=== PATIENT | male | born 1945 | race Caucasian/White ===

== ENCOUNTER 2016-12-27 20:04 | Inpatient (IN) ==
--- NOTE | 2016-12-27 20:14 | Emergency Department Note ---
Disposition Clinical Impression: Community acquired pneumonia, Influenza, Acute on chronic kidney failure, Elevated troponin Respiratory failure Qualifiers: Chronicity: acute Respiratory failure complication: hypoxia Qualified Code(s): J96.01 - Acute respiratory failure with hypoxia Disposition: Admitted As Inpatient Condition: Fair SOB HPI - General Chief Complaint: ED Shortness of Breath/Dyspnea Stated Complaint: resp distress Time Seen by Provider: 12/27/16 20:08 Source: patient, EMS Mode of arrival: EMS Limitations: no limitations Nursing Notes Reviewed: Yes Vital Signs Reviewed: Yes - History of Present Illness 71-year-old male history of COPD not oxygen dependent, HLD, CAD, CK D who presents to the ER from the [facility] due to worsening shortness of breath and hypoxia. EMS reports the patient was transferred here due to hypoxia on the floor. Patient was descending into the 80s. Patient was placed on BiPAP prior to arrival here. He reports that he started having a nonproductive cough and shortness of breath on Friday. Patient was diagnosed with bilateral pneumonia and was admitted to the [facility]. Patient denies oxygen requirement at home. Has never required intubation. Denies any chest pain, NC, DVT or PE. No other complaints. Pt Subjective Complaint: shortness of breath Onset (ago): day(s) Context: recent illness Severity: moderate Consistency/Duration: constant Improves with: oxygen Worsens with: nothing Known history of: COPD Associated symptoms: Reports: cough, abdominal pain. Denies: chest pain, fever , sputum production, nausea/vomiting Treatment prior to arrival: oxygen, bronchodilator, NIPPV Cough present: Yes Cough Description: Involuntary Sputum production: No Sputum Amount: None - Related Data Home oxygen amount: none Allergies Allergy/AdvReac Type Severity Reaction Status Date / Time clindamycin Allergy See Verified 12/27/16 20:09 Comments Erythromycin Base Allergy See Verified 12/27/16 20:09 Comments Penicillins Allergy See Verified 12/27/16 20:09 Comments Sulfa (Sulfonamide Allergy See Verified 12/27/16 20:09 Antibiotics) Comments All systems ED: reviewed and negative except as stated. Constitutional: Denies: fever, chills Cardiovascular: Denies: chest pain Respiratory: Reports: cough, dyspnea. Denies: wheezes Gastrointestinal: Reports: abdominal pain, constipation. Denies: nausea, vomiting Musculoskeletal: Denies: back pain Integumentary: Denies: rash Past Medical History - Past Medical History Attestation: Yes The following information was validated with the patient. Source: patient Medical history: Reports: COPD, coronary artery disease Surgical history: Reports: non-contributory Physical Exam - General Limitations: no limitations General appearance: alert, in no apparent distress - Head Head exam: atraumatic, normocephalic, normal inspection - Eye Eye exam: Present: normal appearance, EOMI - ENT ENT exam: normal exam - Chest Chest inspection: Present: normal inspection, symmetric chest wall rise - Respiratory Respiratory exam: Present: other (Diminished breath sounds bilaterally with some mild accessory muscle use currently on BiPAP.). Absent: respiratory distress - Cardiovascular Cardiovascular exam: Present: normal rhythm, tachycardia, normal heart sounds - Abdominal Exam Abdominal exam: Present: soft, Non-Tender, distention. Absent: rigidity - Extremities Exam Extremities exam: Present: normal inspection, full ROM - Expanded Upper Extremity Exam Shoulder exam: Present: normal inspection, full ROM Arm exam: Present: normal inspection, full ROM Elbow exam: Present: normal inspection, full ROM Forearm/Wrist exam: Present: normal inspection, full ROM Hand exam: Present: normal inspection, full ROM - Expanded Lower Extremity Exam Hip/Pelvis exam: Present: normal inspection, full ROM Upper leg exam: Present: normal inspection, full ROM Knee exam: Present: normal inspection, full ROM Lower leg exam: Present: normal inspection, full ROM Ankle exam: Present: normal inspection, full ROM Foot/toe exam: Present: normal inspection, full ROM - Neurological Exam Neurological exam: Present: alert - Psychiatric Psychiatric exam: Present: normal affect, normal mood - Skin Skin exam: Present: warm, dry, intact, normal color Course Course Narrative: Patient seen and examined. Vital signs reviewed. He is tachycardic in the 130s here. Satting well on BiPAP. We will repeat his labs, blood cultures, lactate, EKG and chest x-ray. We will also check an ABG given his respiratory status. Vital Signs Temperature 99.0 F 12/27/16 20:10 Pulse Rate 124 12/27/16 20:10 Respiratory Rate 17 12/27/16 20:10 Blood Pressure 113/73 12/27/16 20:10 O2 Sat by Pulse Oximetry 92 L 12/27/16 20:10 Temperature 99.0 F 12/27/16 20:10 Pulse Rate 113 12/27/16 21:54 Respiratory Rate 19 12/27/16 21:54 Blood Pressure 114/71 12/27/16 21:54 O2 Sat by Pulse Oximetry 93 L 12/27/16 21:54 Oxygen Delivery Oxygen Delivery Bipap Shortness of Breath/Dyspnea - MDM Narrative Medical decision making narrative: 71-year-old male presents to the ER from the [facility] due to pneumonia, hypoxia. Patient placed on BiPAP prior to arrival. His sinus tach on the monitor. Troponin 0.04. He is chest pain-free. Chest x-ray shows multifocal pneumonia. Blood cultures drawn. Patient remains on BiPAP doing well. Not acidotic on his ABG. Patient admitted to the hospitalist service for further management. - Lab Data Lab results reviewed: Yes I reviewed the patient's lab results. Result diagrams: 12/27/16 20:51 12/27/16 20:51 Lab Results 12/27/16 12/27/16 12/27/16 Range/Units 20:08 20:51 20:51 WBC 6.0 (4.3-11.1) K/mcL RBC 4.10 L (4.19-5.50) M/mcL Hgb 12.0 L (12.9-16.9) g/dL Hct 36.7 L (37.5-50.1) % MCV 89.5 (83.0-100.0) fL MCH 29.3 (28.0-33.3) pg MCHC 32.7 (31.6-35.5) g/dL RDW 15.3 H (11.5-14.5) % Plt Count 189 (140-400) K/mcL MPV 10.6 (9.4-12.4) fL Immature Gran % 1.7 (0-4) % Seg Neutrophils % 92.2 % Lymphocytes % 3.7 % Monocytes % 2.2 % Eosinophils % 0.0 % Basophils % 0.2 % Neutrophils # 5.5 (1.6-8.9) K/mcL Lymphocytes # 0.2 L (0.6-4.6) K/mcL Monocytes # 0.1 (0.0-1.3) K/mcL Eosinophils # 0.0 (0.0-0.6) K/mcL Basophils # 0.0 (0.0-0.2) K/mcL Toxic Granulation Present A (Not Present) PT (9.4-12.1) Seconds INR ABG pH 7.36 (7.32-7.45) pH Units ABG pCO2 36 (35-45) mmHg ABG pO2 75 L (85-104) mmHg ABG HCO3 20.3 L (21-27) mEQ/L ABG Total CO2 21.4 (20-26) mEq/L ABG O2 Saturation 94 L (95-98) % ABG Base Excess -4.6 L (-2.0 to 3.0) mEq/L Blood Gas Modality BIPAP Inspired O2 60 % Sodium 137 (136-145) mEq/L Potassium 4.4 (3.5-4.5) mEq/L Chloride 104 (98-109) mEq/L Carbon Dioxide 20 (19-29) mEq/L BUN 62 H (8-26) mg/dL Creatinine 3.41 H (0.72-1.25) mg/dL Est GFR ( Amer) 22 L (> 60) Est GFR (Non-Af Amer) 18 L (> 60) BUN/Creatinine Ratio 18 (6-26) Glucose 92 (70-99) mg/dL Calculated Osmolality 301 H (280-300) Lactic Acid (0.5-2.2) mmol/L Calcium 8.8 (8.6-10.8) mg/dL Troponin I (0-0.03) ng/mL B-Natriuretic Peptide (0-100) pg/mL 12/27/16 12/27/16 12/27/16 Range/Units 20:51 20:51 20:51 WBC (4.3-11.1) K/mcL RBC (4.19-5.50) M/mcL Hgb (12.9-16.9) g/dL Hct (37.5-50.1) % MCV (83.0-100.0) fL MCH (28.0-33.3) pg MCHC (31.6-35.5) g/dL RDW (11.5-14.5) % Plt Count (140-400) K/mcL MPV (9.4-12.4) fL Immature Gran % (0-4) % Seg Neutrophils % % Lymphocytes % % Monocytes % % Eosinophils % % Basophils % % Neutrophils # (1.6-8.9) K/mcL Lymphocytes # (0.6-4.6) K/mcL Monocytes # (0.0-1.3) K/mcL Eosinophils # (0.0-0.6) K/mcL Basophils # (0.0-0.2) K/mcL Toxic Granulation (Not Present) PT (9.4-12.1) Seconds INR ABG pH (7.32-7.45) pH Units ABG pCO2 (35-45) mmHg ABG pO2 (85-104) mmHg ABG HCO3 (21-27) mEQ/L ABG Total CO2 (20-26) mEq/L ABG O2 Saturation (95-98) % ABG Base Excess (-2.0 to 3.0) mEq/L Blood Gas Modality Inspired O2 % Sodium (136-145) mEq/L Potassium (3.5-4.5) mEq/L Chloride (98-109) mEq/L Carbon Dioxide (19-29) mEq/L BUN (8-26) mg/dL Creatinine (0.72-1.25) mg/dL Est GFR ( Amer) (> 60) Est GFR (Non-Af Amer) (> 60) BUN/Creatinine Ratio (6-26) Glucose (70-99) mg/dL Calculated Osmolality (280-300) Lactic Acid 1.9 (0.5-2.2) mmol/L Calcium (8.6-10.8) mg/dL Troponin I 0.04 H* (0-0.03) ng/mL B-Natriuretic Peptide 21 (0-100) pg/mL 12/27/16 Range/Units 20:51 WBC (4.3-11.1) K/mcL RBC (4.19-5.50) M/mcL Hgb (12.9-16.9) g/dL Hct (37.5-50.1) % MCV (83.0-100.0) fL MCH (28.0-33.3) pg MCHC (31.6-35.5) g/dL RDW (11.5-14.5) % Plt Count (140-400) K/mcL MPV (9.4-12.4) fL Immature Gran % (0-4) % Seg Neutrophils % % Lymphocytes % % Monocytes % % Eosinophils % % Basophils % % Neutrophils # (1.6-8.9) K/mcL Lymphocytes # (0.6-4.6) K/mcL Monocytes # (0.0-1.3) K/mcL Eosinophils # (0.0-0.6) K/mcL Basophils # (0.0-0.2) K/mcL Toxic Granulation (Not Present) PT 14.2 H (9.4-12.1) Seconds INR 1.3 ABG pH (7.32-7.45) pH Units ABG pCO2 (35-45) mmHg ABG pO2 (85-104) mmHg ABG HCO3 (21-27) mEQ/L ABG Total CO2 (20-26) mEq/L ABG O2 Saturation (95-98) % ABG Base Excess (-2.0 to 3.0) mEq/L Blood Gas Modality Inspired O2 % Sodium (136-145) mEq/L Potassium (3.5-4.5) mEq/L Chloride (98-109) mEq/L Carbon Dioxide (19-29) mEq/L BUN (8-26) mg/dL Creatinine (0.72-1.25) mg/dL Est GFR ( Amer) (> 60) Est GFR (Non-Af Amer) (> 60) BUN/Creatinine Ratio (6-26) Glucose (70-99) mg/dL Calculated Osmolality (280-300) Lactic Acid (0.5-2.2) mmol/L Calcium (8.6-10.8) mg/dL Troponin I (0-0.03) ng/mL B-Natriuretic Peptide (0-100) pg/mL - Radiology Data Radiology results reviewed: Yes I reviewed the patient's radiology results. Chest X-Ray 12/27/16 20:08 IMPRESSION: Acute multifocal pneumonia. D/ / Ishaan Pro MD / Ishaan Pro MD Interpreting Provider: Ishaan Pro MD - EKG Data EKG attestation: Yes I reviewed and interpreted this EKG. EKG results narrative: EKG demonstrates sinus tachycardia with a rate of 133. Left axis deviation. Right bundle branch block. WA interval 126 QRS duration 109 QTC 370. T-wave inversions in precordial leads likely secondary to bundle branch block. No ST elevations or depressions. Critical Care Time Critical Care Time: Yes Total Critical Care Time: 35 Attestation: Critical care performed: Time is exclusive of separately billable procedures. Time includes: direct patient care, patient reassessment, coordination of patient care, interpretation of data (laboratory data, radiology data, and respiratory data), review of patient's medical records, medical consultation and documentation of patient care. Procedures included in critical care time: Procedures excluded from critical care time: S.Gloria.Paulo. - Tessa.Syd Situation: Demographics, MOA Background: Presenting Complaint, Relevant PMH, Meds, & Allergies Assessment: Vital Signs, Course and respsone to treatment, Exam Concerns, Patient/Family Expectation, Pertinant Lab Results, Outstanding Labs Recommendation: Barrier(s) to disposition, Recommendation based on pending studies, treatments, or consults SNick Report Given to: Dr David Hampton Repor Time: 21:53 Attestation Statement - Attestation Attestation: I, Nando Fry MD, personally performed a history and physical exam of the patient and discussed their management with the resident. I reviewed the resident's note and agree with the documented findings, medical decision making , and plan of care. Patient is a 71-year-old male who was transferred here from the local [facility] facility for management of increasing respiratory distress. Patient was admitted at the [facility] this morning for cough and shortness of breath. He had a positive flu swab for type A influenza. He was also found to have a right basilar pneumonia which was noted on CT of the abdomen and pelvis. Throughout the day his condition has deteriorated to the point that he had to be placed on BiPAP to maintain his oxygen saturation. On arrival here the patient is awake and alert and oriented and answers questions appropriately. He is on BiPAP with an oxygen saturation of 95%. Initial respiratory rate about 18. He is tachycardic with a heart rate in the 130s. He has not noticed any fever. He states he has had a nonproductive cough with generalized body aches and increased shortness of breath. On examination patient is a well-developed well-nourished elderly male in no acute distress. He is alert and oriented 3. There is no cyanosis or diaphoresis. Breath sounds are decreased bilaterally with some scattered bilateral rales. Heart is tachycardic and regular. Abdomen soft and nontender with normal bowel sounds. No pedal edema. No gross focal neurological deficits. Labs reviewed. Chest x-ray shows left perihilar and bibasilar infiltrates. Labs reviewed. Acute kidney injury with creatinine greater than 3. His creatinine at the [facility] earlier today was greater than 4. The hospitalist, Dr. Hernandez, was consulted and accepted admission of the patient.
[2016-12-27 20:17] LABS: ABG Base Excess -4.6 mEq/L (-2.0 to 3.0); ABG HCO3 20.3 mEQ/L (21-27); ABG Oxygen Saturation 94 % (95-98); ABG PCO2 36 mmHg (35-45); ABG PH 7.36 pH Units (7.32-7.45); ABG PO2 75 mmHg (85-104); ABG TCO2 21.4 mEq/L (20-26); Blood Gas FiO2 60 %
[2016-12-27 20:58] LABS: Basophils % 0.2 %; Hematocrit 36.7 % (37.5-50.1); Immature Granulocytes % 1.7 % (0-4); Lymphocytes # 0.2 K/mcL (0.6-4.6); Lymphocytes % 3.7 %; Mean Corpuscular HGB Conc 32.7 g/dL (31.6-35.5); Mean Corpuscular Hemoglobin 29.3 pg (28.0-33.3); Mean Corpuscular Volume 89.5 fL (83.0-100.0); Mean Platelet Volume 10.6 fL (9.4-12.4); Monocytes # 0.1 K/mcL (0.0-1.3); Monocytes % 2.2 %; Neutrophils # 5.5 K/mcL (1.6-8.9); Platelet Count 189 K/mcL (140-400); Red Cell Distribution Width 15.3 % (11.5-14.5); Segmented Neutrophils % 92.2 %
[2016-12-27 21:05] LABS: INR 1.3; Prothrombin Time 14.2 Seconds (9.4-12.1)
[2016-12-27 21:10] LABS: Calcium 8.8 mg/dL (8.6-10.8); Potassium 4.4 mEq/L (3.5-4.5)
[2016-12-27 21:15] LABS: Toxic Granulation Present (Not Present)
--- NOTE | 2016-12-27 23:30 | Internal Med History&Physical ---
<Telly Galvez - Last Filed: 12/28/16 02:43> Date of Encounter: 12/27/16 Time of Encounter: 23:00 Assessment and Plan (1) Respiratory failure Current visit: Yes Status: Acute Patient has acute hypoxic respiratory failure, requiring BiPAP in order to maintain oxygen saturation in the low 90s. Even with BiPAP in place he continues to use accessory muscles respiration and showing signs of fatigue. His current respiratory status is likely caused by acute bacterial pneumonia, influenza A, or both. We will replete fluids as below Continue Tamiflu started at the [place] Patient was started on moxifloxacin at the [place], we will continue with levofloxacin dosed renally We will start vancomycin due to serious nature of patient respiratory failure We will continue BiPAP as tolerated by patient, but if needed patient is willing to undergo intubation Scheduled breathing treatments with Xopenex and ipratropium nebulizer We will continue methylprednisolone 125 mg IV every 6 hours We will obtain echocardiogram to further assess heartstring and possible cardiac contribution to current respiratory status Patient moved to ICU for closer observation in case of needed intubation Continue to monitor on telemetry and pulse oximetry We will obtain ABG in the morning Sputum culture and Gram stain, strep pneumoniae and legionella antigens Obtain blood culture Qualifiers: Chronicity: acute Respiratory failure complication: hypoxia Qualified Code(s): J96.01 - Acute respiratory failure with hypoxia (2) Community acquired pneumonia Current visit: Yes Status: Acute Patient found to have multifocal pneumonia on chest examination. Contributory to patient's respiratory status. Plan as above (3) Influenza Current visit: Yes Status: Acute Patient has positive influenza a nasal swab, likely contributing to current respiratory status. Plan as above (4) Acute on chronic kidney failure Current visit: Yes Status: Acute Anuric kidney failure, with 300 mL out and BladderScan negative for residual fluid in the bladder. Reported only output since Friday, which is present in the Silva bag appears very dark colored concentrated, suggesting dehydration Patient denies urination since Friday, 4 days ago. Elevated serum creatinine seen at 3.41. When checked at the [place] prior to presentation Belinda was 4.3. Current ROSIE is likely multifactorial, given patient respiratory status and high risk for respiratory failure and decreased by mouth intake leading to dehydration and prerenal causes of ROSIE. We will continue to trend kidney function with periodic blood chemistry 500 mL bolus normal saline given Will continue fluid repletion with 250 mL an hour of normal saline for 2 L and then reassess fluid status Consider nephrology consult if continued worsening ROSIE (5) Abdominal pain Current visit: Yes Status: Acute Patient has severe abdominal pain with distention. Abdominal CT [facility], but difficult to fully assess aside from gas and stool causing some distention of bowel loops. We will reassess abdominal pain after resolution of acute respiratory failure Pain control with 0.5 mg hydromorphone every 4 hours when necessary Nausea controlled with Zofran Qualifiers: Abdominal location: lower abdomen, unspecified Qualified Code(s): R10.30 - Lower abdominal pain, unspecified (6) DVT prophylaxis Current visit: Yes Status: Acute 5000 units heparin 3 times a day Internal Medicine - H&P: HPI Chief complaint: Shortness of breath and abdominal pain Admitted From: Hospital to Hospital Transfer Plans for Post Hospital Care: Home History of present illness: Mr. Fleming is a 71 year old male with medical history significant for COPD, asbestosis, chronic kidney disease, coronary artery disease with central Belinda from the [place] after patient began experiencing greater hypoxia. He reports that since Friday his been having a fever, dry cough, increased shortness of breath. He also reports having orthostatic dizziness in this timeframe. Since Friday he also reports having severe stomach pain culminating in 10 out 10 pain today when he presented to the [place] urgent care. He did not require oxygen and home over the course of the day he has required progressively more oxygen, currently using BiPAP to maintain oxygen saturation around 90. He states the abdominal pain has been increasing over the course of the week, he states his eye had a good bowel movement since Friday has only occasional bouts of diarrhea. Along with the lower abdominal pain, looking the lower quadrants, he denies having any urination since Friday as well. Cannot say what exactly happened Friday or if there have been any significant changes to medications, or events. Past Med Surg Social Fam HX - Past Medical History Medical history: COPD, coronary artery disease Psychiatric history: anxiety - Past Surgical History Surgical History: non-contributory - Social History Smoking Status: Current every day smoker Smokeless Tobacco Status: No Alcohol use: none Drug use: none Internal Medicine - H&P: Meds 0.9 % Sodium Chloride 1,000 ml IV 12/27/16 [History] Albuterol Sulfate [Albuterol Inhaler] 2 puff IH Q4H PRN 12/27/16 [History] Atorvastatin [Lipitor] 10 mg PO HS 12/27/16 [History] Budesonide/Formoterol 160/4.5 [Symbicort 160/4.5] 2 puff IH BIDR 12/27/16 [ History] Chlorhexidine Gluconate [Peridex] 15 ml MM BID 12/27/16 [History] Enoxaparin [Lovenox] 30 mg SQ DAILY 12/27/16 [History] Guaifenesin [Mucus Relief] 400 mg PO Q12H PRN 12/27/16 [History] Hydromorphone HCl/Pf [Dilaudid 2 mg/ml Syringe] 2 mg IVP Q6H PRN 12/27/16 [ History] Levalbuterol HCl [Xopenex Neb] 1.25 mg IH Q4H 12/27/16 [History] Magnesium Hydroxide [Milk of Magnesia] 2,400 mg PO DAILY PRN 12/27/16 [History] Methylprednisolone Sod Succ [Methylprednisolone Sodium Succ] 125 mg IVP Q6H [History] Metoprolol [Lopressor] 12.5 mg PO BID 12/27/16 [History] Moxifloxacin/Sod.mona,Sul/Water [Moxifloxacin 400 mg/250 ml Bag] 400 mg IVPB Q24H 12/27/16 [History] Oseltamivir [Tamiflu] 75 mg PO BID 12/27/16 [History] Promethazine [Phenergan] 12.5 mg IM Q6HR PRN 12/27/16 [History] Tiotropium [Spiriva] 18 mcg IH 0700 12/27/16 [History] Trazodone HCl 100 mg PO HS 12/27/16 [History] Allergies clindamycin Allergy (Verified 12/27/16 20:09) See Comments Erythromycin Base Allergy (Verified 12/27/16 20:09) See Comments Penicillins Allergy (Verified 12/27/16 20:09) See Comments Sulfa (Sulfonamide Antibiotics) Allergy (Verified 12/27/16 20:09) See Comments - Constitutional Constitutional: fever(s), no anorexia, no chills, no fatigue, no weakness - EENT Nose, mouth and throat: no dysphagia, no nasal discharge, no neck pain, no sore throat - Cardiovascular Cardiovascular ROS IM: as per HPI, dyspnea, dyspnea on exertion, no chest pain, no diaphoresis, no lightheadedness, no palpitations, no syncope - Respiratory Respiratory: as per HPI, cough, dyspnea, dyspnea on exertion, no hemoptysis, no pain on inspiration, no excessive phlegm production, no change in phlegm color - Gastrointestinal Gastrointestinal: as per HPI, abdominal pain, bloating, change in bowel habits, constipation, diarrhea, no coffee ground emesis, no hematemesis, no melena, no nausea, no vomiting - Genitourinary Genitourinary ROS male: difficulty urinating, other (Denies urination since Friday), no dysuria, no hematuria - Musculoskeletal Musculoskeletal ROS IM: no neck pain, no numbness, no tingling - Integumentary Integumentary IM: no rash, no unusual bruising - Neurological Neurological ROS: no confusion, no convulsions, no focal weakness, no numbness, no tingling, no tremor(s) - Constitutional Vitals: Temp Pulse Resp BP Pulse Ox 99.0 F 110 20 101/68 93 L 12/27/16 20:10 12/27/16 22:31 12/27/16 22:31 12/27/16 22:31 12/27/16 22:31 Exam: General: Cooperative, pleasant, no acute distress, alert and oriented 3, answers questions appropriately Head: Normocephalic, atraumatic Eye: Conjunctiva pink, sclera anicteric, EOMI, PERRL Neck: Supple, trachea midline Respiratory: Accessory muscle usage present (abdominal breathing), decreased breath sounds, slight crackles auscultated Cardiovascular: Regular rate and rhythm, S1 and S2 present, no murmurs/rubs/ gallops/clicks appreciated GI/abdominal: Distended abdomen, tenderness to palpation right lower left lower quadrants, soft, normal bowel sounds, no peritoneal signs Extremities: No calf tenderness, noncyanotic, no pedal edema appreciated, warm, lower extremity pulses palpable and symmetrical Neurological: Alert and oriented 3, no facial droop, no focal deficits Skin: Dry, intact, normal color Internal Med - H&P Results - Labs CBC & Chem 7: 12/27/16 20:51 12/27/16 20:51 <Nico Araya - Last Filed: 12/28/16 04:40> Past Med Surg Social Fam HX - Family History Mother History Unknown: Yes Living Status: Father History Unknown: Yes Living Status: - Constitutional Vitals: Temp Pulse Resp BP Pulse Ox 97.6 F 95 19 99/64 98 12/28/16 04:06 12/28/16 04:06 12/28/16 04:06 12/28/16 04:06 12/28/16 04:06 General appearance: Present: cooperative, mild distress (showing signs of respiratory distress and increased WOB), A&O X 3, pleasant, answers questions appropriately - Head Head exam: Present: atraumatic, normal inspection - Eye Eye exam: Present: EOMI, normal appearance, PERRL. Absent: scleral icterus Pupils: Present: normal accommodation - Neck Neck exam general surgery: Present: supple. Absent: tenderness, nuchal rigidity - Respiratory Respiratory exam: Present: accessory muscle use, rales (predominantly in left base), respiratory distress, rhonchi, tachypnea. Absent: chest wall tenderness , CTAB, wheezes Additional comments: pt on BiPap and exhibiting some respiratory distress - Cardiovascular Cardiovascular exam: Present: RRR, +S1, +S2, tachycardia. Absent: diastolic murmur, JVD, systolic murmur - GI/Abdominal GI/Abdominal exam: Present: distended, soft, tenderness, no peritoneal signs. Absent: guarding, hepatomegaly, mass, rebound, rigid, splenomegaly - Extremities Exam Extremities exam: Present: full ROM, warm. Absent: calf tenderness - Back Exam Back exam: Absent: CVA tenderness (L), CVA tenderness (R) - Neurological Exam Neurological exam: Present: alert, CN II-XII intact, oriented X3, no focal deficits - Psychiatric Psychiatric exam: Present: anxious Internal Med - H&P Results - Labs CBC & Chem 7: 12/28/16 03:35 12/28/16 03:35 Labs: Short CBC 12/28/16 Range/Units 03:35 WBC 5.9 (4.3-11.1) K/mcL Hgb 10.1 L D (12.9-16.9) g/dL Hct 31.0 L (37.5-50.1) % Plt Count 157 (140-400) K/mcL Neutrophils # 5.6 (1.6-8.9) K/mcL BMP 12/28/16 03:35 Sodium 136 Potassium 4.2 Chloride 108 Carbon Dioxide 18 L BUN 64 H Creatinine 3.00 H Glucose 120 H Calcium 7.7 L Liver Function 12/28/16 Range/Units 03:35 Total Bilirubin 0.7 (0.2-1.2) mg/dL AST 50 H (5-34) Units/L ALT 17 (0-55) Units/L Alkaline Phosphatase 45 (38-126) Units/L Albumin 2.1 L (3.5-5.0) g/dL - ABG Interpretation ABG results: 12/28/16 01:09 ABG pH 7.31 L ABG pCO2 39 ABG pO2 71 L ABG HCO3 19.6 L ABG Total CO2 20.8 ABG O2 Saturation 92 L ABG Base Excess -6.2 L - EKG Data -: EKG Interpreted by Myself - EKG Data Prior EKG available for review: no EKG comments: 12/28/16 04:26 sinus tachycardia; LAD; RBBB - Diagnostic Studies Chest x-ray Status: image reviewed by me (multi-focal infiltrates) - Attending Attestation I discussed the patient SPOKANE, PMH, ROS, lab data, and exam findings with Dr. Galvez. Shortly thereafter, I was called to bedside to see him urgently for concerns of respiratory decompensation. Family was upset that he was not in ICU as [place] had promised. I spoke with patient and family at length and assessed patient at the bedside with family and Dr. Galvez present. Pt was in obvious respiratory distress, even on Bipap. He is also intravascularly dry. He has a high FIO2 requirement, but he is tolerating BiPap and reports subjective improvement. I worry that he will decompensate and may need intubation and mechanical ventilation. I therefore moved him from 2NE to ICU for closer monitoring. I discussed CODE STATUS with patient and family, and he states he is full code. After fluid resuscitation per Dr. Galvez, I reassessed him in the ICU again about an hour later. He is better perfused, mentating well, breathing a little better, but he is dependent on BiPap for now. I requested a repeat ABG be done later this morning. I will also order repeat CXR. Patient is septic and in need of ongoing ICU care as well as respiratory support. I will ask tennis camp instructor to assume management of him in the ICU. Should he decompensate and/ or grow increasingly tired of breathing, we will intervene and intubate as discussed with patient and family. Other than my comments and noted exam findings, I agree with Dr. Galvez's assessment and plan. Total of 50 minutes critical care time spent with patient thus far.
[2016-12-28] MEDS ORDERED: Acetaminophen 325 MG TABLET PO PRN (00:10)
[2016-12-28] MEDS ORDERED: Naloxone 0.4 MG/ML INJ IVP PRN (00:10)
[2016-12-28] MEDS ORDERED: 0.9 % Sodium Chloride 500 ML IVC ONE ×2 (00:45→10:00)
[2016-12-28] MEDS ORDERED: *HR* Promethazine 25 MG/ML VIAL IM PRN (00:46)
[2016-12-28] MEDS ORDERED: Vancomycin 1,000 MG in D5% in Water 250 ML IVPB SCH (01:00)
[2016-12-28 01:19] LABS: ABG Base Excess -6.2 mEq/L (-2.0 to 3.0); ABG HCO3 19.6 mEQ/L (21-27); ABG Oxygen Saturation 92 % (95-98); ABG PCO2 39 mmHg (35-45); ABG PH 7.31 pH Units (7.32-7.45); ABG PO2 71 mmHg (85-104); ABG TCO2 20.8 mEq/L (20-26); Blood Gas FiO2 35 %
[2016-12-28] MEDS: Levofloxacin 750 MG/150 ML 750 MG/150 ML BAG IVPB SCH (01:44)
[2016-12-28] MEDS: 0.9 % Sodium Chloride 1,000 ML IVC SCH ×2 (01:44→05:15)
[2016-12-28] MEDS: *HR* HYDROmorphone (PF) 1 MG/ML SYRINGE IVP PRN ×2 (02:21→15:23)
[2016-12-28] MEDS: Ondansetron 4 MG/2 ML VIAL IVP PRN ×2 (02:28→15:22)
[2016-12-28] MEDS ORDERED: Vancomycin 1,500 MG in D5% in Water 250 ML IVPB ONE (03:00)
[2016-12-28 03:42] LABS: Mean Corpuscular HGB Conc 32.6 g/dL (31.6-35.5); Mean Corpuscular Volume 89.1 fL (83.0-100.0); Mean Platelet Volume 9.8 fL (9.4-12.4); Platelet Count 157 K/mcL (140-400); Red Blood Count 3.48 M/mcL (4.19-5.50); Red Cell Distribution Width 15.5 % (11.5-14.5)
[2016-12-28 03:44] LABS: Hemoglobin 10.1 g/dL (12.9-16.9)
[2016-12-28 03:55] LABS: Albumin 2.1 g/dL (3.5-5.0); Albumin/Globulin Ratio 0.6 (1.1-2.2); Bilirubin,Total 0.7 mg/dL (0.2-1.2); Calcium 7.7 mg/dL (8.6-10.8); Globulin 3.7 g/dL (2.4-3.5); Magnesium 1.7 mg/dL (1.6-2.6); Phosphorous 4.1 mg/dL (2.3-4.7); Potassium 4.2 mEq/L (3.5-4.5); Total Protein 5.8 g/dL (6.0-8.3)
[2016-12-28 04:00] LABS: Lymphocytes # 0.4 K/mcL (0.6-4.6); Neutrophils # 5.6 K/mcL (1.6-8.9)
[2016-12-28 04:01] LABS: Large Platelets Present (Not Present); Platelet Estimate Normal (Normal); Toxic Granulation Present (Not Present)
[2016-12-28] MEDS: Ipratropium Neb 0.5 MG NEBULIZER IH SCH ×3 (04:37→11:30)
[2016-12-28] MEDS: Levalbuterol Neb 1.25 MG/3 ML IH SCH ×3 (04:37→11:30)
[2016-12-28] MEDS: *HR* Heparin 5,000 UNIT/ML VIAL SQ SCH ×3 (05:15→20:36)
[2016-12-28] MEDS: methylPREDNISolone 125 MG/2 ML VIAL IVP SCH ×2 (05:15→12:55)
[2016-12-28 06:37] LABS: ABG Base Excess -5.6 mEq/L (-2.0 to 3.0); ABG HCO3 19.2 mEQ/L (21-27); ABG Oxygen Saturation 95 % (95-98); ABG PCO2 34 mmHg (35-45); ABG PH 7.36 pH Units (7.32-7.45); ABG PO2 80 mmHg (85-104); ABG TCO2 20.2 mEq/L (20-26); Blood Gas FiO2 35 %
[2016-12-28] MEDS ORDERED: Chlorhexidine Rinse 15 ML MOUTHWASH MM SCH (09:00)
[2016-12-28] MEDS: Pantoprazole 40 MG VIAL IVP SCH (09:28)
[2016-12-28] MEDS: Oseltamivir Phosphate 30 MG CAPSULE PO SCH (09:29)
--- NOTE | 2016-12-28 12:09 | ECHO - Doppler Report ---
Echocardiogram Name: Everette Fleming Date of Study: 12/28/2016 Date: 1945 Ht: 67.0 in Medical Record#: [id number] Age: 71 Wt: 151.0 lb Gender: Male BSA: 1.79 Order #: [id number] Location: [facility] Room #: ICU11 Reading Physician: Pattie Gonsalez DO Motorcycle Technician: Gordo Downey RVT, [facility] Ordering Physician: Telly Galvez DO Primary Physician: None Indications: respiratory failure Impressions: LVEF 60-65%. Normal left ventricular size and systolic function. There is evidence of mild diastolic dysfunction of the left ventricle. Mildly dilated RV with normal function. Mild MR and TR. No pulmonary hypertension. Left Ventricular Wall Motion: Rest Echo Findings All wall segments showed normal motion. Findings: Study Quality * Technically adequate. ECG Findings * Normal sinus rhythm. Left Ventricle * Normal LV chamber size, wall thickness and function. * LVEF 60-65%. * Mild left ventricular diastolic dysfunction. Left Atrium * Normal left atrial size. Mitral Valve * Normal mitral valve structure. * No mitral stenosis. * Mild mitral regurgitation. Aorta * Normally sized aortic root. Aortic Valve * No aortic regurgitation. * Aortic valve not well visualized. * No aortic stenosis. Tricuspid Valve * Tricuspid valve not well visualized. * Mild tricuspid regurgitation. * Estimated RA pressure is 3 mmHg. * Estimated RVSP is 33 mmHg. * No pulmonary hypertension. Pulmonary Artery * Pulmonary artery not well visualized. Pulmonic Valve * Pulmonic valve is not well visualized. * No pulmonic stenosis. * No pulmonic regurgitation. Right Atrium * Right atrium is not well visualized. Right Ventricle * Mildly dilated with normal function. Interatrial Septum * No evidence of PFO by color Doppler. IVC * Normal IVC dimensions and inspiratory collapse. Pericardium * There is no pericardial effusion present. History Hypercholesteremia Years 49 Packs 1.5 Family History of CAD 07/30/2016 a Previous Echo was performed. Measurements: BP: 100/ 66 2D Normal Values RVIDd: 3.24 cm <2.7 cm IVSd: 1.01 cm 0.6 - 1.0 cm LVIDd: 4.62 cm 3.7 - 5.6 cm LVPWd: .88 cm 0.6 - 1.1 cm LVIDs: 2.92 cm 1.5 - 3.6 cm AO: 3.20 cm < 4.0 cm LA: 3.20 cm 2.0 - 4.0cm %FS: 36.80 cm >25 % LVOT Diam: 1.90 cm LA volume: 27 Mitral Valve Peak E:.95 m/sec Peak A:1.02 m/sec E/A Ratio:0.9 Peak E' Lat Abisai:10.2 cm/s Peak E' Med Abisai:7.94 cm/s E/E' Lat Ratio:9.3 E/E' Med Ratio:12 Tricuspid Valve TV Regurg Peak Grad: 30.00mmHg TV Regurg Peak Abisai: 2.72m/sec Updated by Pattie Gonsalez on 12/28/2016 12:03:03 PM electronically signed on 12/28/2016 12:04:12 PM with status of Final Wall Motion Wise: 1=Normal, 2=Hypokinesis, 3=Akinesis, 4=Dyskinesis, 5=Aneurysmal, 6=Hyperkinetic, X=Not Visualized (Blank)=Missing
--- NOTE | 2016-12-28 12:12 | Pulmonology Consult Note ---
Date of Encounter: 12/28/16 Time of Encounter: 12:09 Assessment and Plan (1) Acute respiratory failure with hypoxia Current Visit: Yes Status: Acute Multifactorial in etiology and due to acute lung injury, pneumonia, and acute exacerbation of COPD. His respiratory status was quite tenuous upon admission, but he clinically seemed improved this morning. Plan today would be to trial off the BiPAP to high flow oxygen via nasal cannula intermittently during the daytime hours. Recommend nightly continuous BiPAP therapy for now. (2) Pneumonia Current Visit: Yes Status: Acute Infectious presentation with fevers and cough associated with abnormal chest imaging. This could be influenza with a bacterial superinfection. He is currently on Tamiflu, levofloxacin, and vancomycin. Flu swab, sputum culture, urinary antigens, MRSA nasal probe, and blood cultures are all pending. We will de-escalate antibiotics based on culture results. There may be a component of acute lung injury. We are treating with intravenous steroids currently. Qualifiers: Pneumonia type: due to unspecified organism Laterality: bilateral Lung location: unspecified part of lung Qualified Code(s): J18.9 - Pneumonia, unspecified organism (3) Acute on chronic kidney failure Current Visit: Yes Status: Acute Chronic kidney disease by history with a creatinine in May 2016 of 1.28. The patient clinically appeared dry upon arrival in the setting of GI illness with diarrhea and poor by mouth intake. He has thus far responded well to IV fluid hydration. We will trend Chem-7 and urine output as we continue to hydrate. (4) Elevated troponin Current Visit: Yes Status: Acute I suspect this is demand ischemia from acute illness coupled with acute renal failure. We will trend his troponin. A transthoracic echocardiogram is pending. (5) COPD with acute exacerbation Current Visit: Yes Status: Acute Continue intravenous steroids and scheduled bronchodilators. Plan to transition to by mouth prednisone on 12/29/2016, which can be followed by a 2 week taper. (6) Abdominal pain Current Visit: Yes Status: Acute Patient had presented with diarrhea and abdominal pain. Clinical presentation most consistent with a viral gastroenteritis. Diarrhea has stopped. The patient's abdominal exam is benign. Lactate is not elevated. Monitor clinically for now. Qualifiers: Abdominal location: lower abdomen, unspecified Qualified Code(s): R10.30 - Lower abdominal pain, unspecified (7) History of tobacco use Current Visit: Yes Status: Acute History of Present Illness Consult date: 12/28/16 Requesting physician: Nico Araya Reason for consult: other (Acute respiratory failure) Chief complaint: respiratory failure History of present illness: 71-year-old white male with a medical history significant for COPD, chronic kidney disease, and coronary artery disease who presented as a transfer from the [place] with influenza and respiratory failure. Of note, at the time of my exam the patient was BiPAP dependent and therefore unable to provide a full history and review of systems. Information was obtained from the medical record and discussion with hospital staff. There is no family at the bedside. Reportedly, the patient had presented to the [facility] for evaluation after noting fevers, cough, and dyspnea. The patient had a worsening hypoxia, he was transferred to [facility] for further evaluation and management. He essentially became BiPAP dependent and was transferred to the ICU for further evaluation and management. Workup thus far has revealed bilateral infiltrates on chest imaging and acute worsening of renal function. Culture data is pending currently. Patient has been started on broad-spectrum antibiotics, bronchodilators, and IV steroids. Past Med Surg Social Fam HX - Past Medical History Medical history: COPD, coronary artery disease Psychiatric history: anxiety - Past Surgical History Surgical History: non-contributory - Social History Smoking Status: Current every day smoker Smokeless Tobacco Status: No Alcohol use: none Drug use: none - Family History Mother History Unknown: Yes Living Status: Father History Unknown: Yes Living Status: Medications and Allergies 0.9 % Sodium Chloride 1,000 ml IV 12/27/16 [History] Albuterol Sulfate [Albuterol Inhaler] 2 puff IH Q4H PRN 12/27/16 [History] Atorvastatin [Lipitor] 10 mg PO HS 12/27/16 [History] Budesonide/Formoterol 160/4.5 [Symbicort 160/4.5] 2 puff IH BIDR 12/27/16 [ History] Chlorhexidine Gluconate [Peridex] 15 ml MM BID 12/27/16 [History] Enoxaparin [Lovenox] 30 mg SQ DAILY 12/27/16 [History] Guaifenesin [Mucus Relief] 400 mg PO Q12H PRN 12/27/16 [History] Hydromorphone HCl/Pf [Dilaudid 2 mg/ml Syringe] 2 mg IVP Q6H PRN 12/27/16 [ History] Levalbuterol HCl [Xopenex Neb] 1.25 mg IH Q4H 12/27/16 [History] Magnesium Hydroxide [Milk of Magnesia] 2,400 mg PO DAILY PRN 12/27/16 [History] Methylprednisolone Sod Succ [Methylprednisolone Sodium Succ] 125 mg IVP Q6H [History] Metoprolol [Lopressor] 12.5 mg PO BID 12/27/16 [History] Moxifloxacin/Sod.mona,Sul/Water [Moxifloxacin 400 mg/250 ml Bag] 400 mg IVPB Q24H 12/27/16 [History] Oseltamivir [Tamiflu] 75 mg PO BID 12/27/16 [History] Promethazine [Phenergan] 12.5 mg IM Q6HR PRN 12/27/16 [History] Tiotropium [Spiriva] 18 mcg IH 0700 12/27/16 [History] Trazodone HCl 100 mg PO HS 12/27/16 [History] Allergies clindamycin Allergy (Verified 12/27/16 20:09) See Comments Erythromycin Base Allergy (Verified 12/27/16 20:09) See Comments Penicillins Allergy (Verified 12/27/16 20:09) See Comments Sulfa (Sulfonamide Antibiotics) Allergy (Verified 12/27/16 20:09) See Comments ROS unobtainable: other (BiPAP dependent) Physical Examination Vital Signs: Vital Signs, Last 4 Hours Temp Pulse Resp BP Pulse Ox 12/28/16 11:30 24 94 L 12/28/16 11:20 99 25 123/81 93 L 12/28/16 10:15 101 26 113/66 94 L 12/28/16 09:15 90 20 107/68 96 12/28/16 08:20 98 21 108/79 97 12/28/16 08:10 97.6 F General: no acute distress, mildly increased work of breathing at rest Eyes: nonicteric ENT: oropharynx dry with BiPAP mask in place Neck: supple, no lymphadenopathy Lungs: Coarse bilateral breath sounds Cardiovascular: regular rate and rhythm Gastrointestinal: normoactive bowel sounds, soft, non-tender, non-distended Integumentary: normal Extremities: no cyanosis, no edema Musculoskeletal: no deformities Neuro: normal mental status, non-focal exam Psych: mood appropriate, affect normal Results - Laboratory Findings CBC and BMP: 12/28/16 03:35 12/28/16 03:35 ABG ABG pH 7.36 pH Units (7.32-7.45) 12/28/16 06:26 ABG pCO2 34 mmHg (35-45) L 12/28/16 06:26 ABG pO2 80 mmHg (85-104) L 12/28/16 06:26 ABG O2 Saturation 95 % (95-98) 12/28/16 06:26 PT/INR, D-dimer PT 14.2 Seconds (9.4-12.1) H 12/27/16 20:51 Abnormal lab findings: Abnormal lab results RBC 3.48 M/mcL (4.19-5.50) L 12/28/16 03:35 Hgb 10.1 g/dL (12.9-16.9) L D 12/28/16 03:35 Hct 31.0 % (37.5-50.1) L 12/28/16 03:35 RDW 15.5 % (11.5-14.5) H 12/28/16 03:35 Lymphocytes # 0.4 K/mcL (0.6-4.6) L 12/28/16 03:35 Toxic Granulation Present (Not Present) A 12/28/16 03:35 Large Platelets Present (Not Present) A 12/28/16 03:35 PT 14.2 Seconds (9.4-12.1) H 12/27/16 20:51 ABG pCO2 34 mmHg (35-45) L 12/28/16 06:26 ABG pO2 80 mmHg (85-104) L 12/28/16 06:26 ABG HCO3 19.2 mEQ/L (21-27) L 12/28/16 06:26 ABG Base Excess -5.6 mEq/L (-2.0 to 3.0) L 12/28/16 06:26 Carbon Dioxide 18 mEq/L (19-29) L 12/28/16 03:35 BUN 64 mg/dL (8-26) H 12/28/16 03:35 Creatinine 3.00 mg/dL (0.72-1.25) H 12/28/16 03:35 Est GFR ( Amer) 25 (> 60) L 12/28/16 03:35 Est GFR (Non-Af Amer) 21 (> 60) L 12/28/16 03:35 Glucose 120 mg/dL (70-99) H 12/28/16 03:35 POC Glucose 102 (58-89) H 12/28/16 01:06 Calculated Osmolality 302 (280-300) H 12/28/16 03:35 Calcium 7.7 mg/dL (8.6-10.8) L 12/28/16 03:35 AST 50 Units/L (5-34) H 12/28/16 03:35 Troponin I 0.04 ng/mL (0-0.03) H* 12/27/16 20:51 Serum Total Protein 5.8 g/dL (6.0-8.3) L 12/28/16 03:35 Albumin 2.1 g/dL (3.5-5.0) L 12/28/16 03:35 Globulin 3.7 g/dL (2.4-3.5) H 12/28/16 03:35 Albumin/Globulin Ratio 0.6 (1.1-2.2) L 12/28/16 03:35 - Clinical Findings Intake & Output: Intake & Output 12/27/16 12/28/16 12/28/16 23:59 07:59 15:59 Intake Total 1250 / 1400 1000 / 1000 Output Total 325 / 325 150 / 150 Balance 925 / 1075 850 / 850 Consult Discharge Plan - Plan [facility]: [facility]Primary Care Provider[facility] -
[2016-12-28] MEDS ORDERED: methylPREDNISolone 125 MG/2 ML VIAL IVP SCH (12:17)
[2016-12-28] MEDS: Ipratropium/Albuterol Neb 3 ML IH SCH ×2 (16:26→20:54)
[2016-12-28] MEDS ORDERED: Vancomycin 1,000 MG in D5% in Water 250 ML IVPB ONE (17:07)
[2016-12-29] MEDS: Ondansetron 4 MG/2 ML VIAL IVP PRN ×2 (00:16→20:26)
[2016-12-29] MEDS: *HR* HYDROmorphone (PF) 1 MG/ML SYRINGE IVP PRN ×2 (03:28→20:26)
[2016-12-29 04:49] LABS: Calcium 8.5 mg/dL (8.6-10.8); Potassium 3.4 mEq/L (3.5-4.5)
[2016-12-29] MEDS: *HR* Heparin 5,000 UNIT/ML VIAL SQ SCH ×3 (06:11→20:27)
[2016-12-29] MEDS: Ipratropium/Albuterol Neb 3 ML IH SCH ×5 (08:04→23:46)
[2016-12-29] MEDS ORDERED: Aminoglycoside Consult 1 EACH MC ONE (08:30)
[2016-12-29] MEDS: Pantoprazole 40 MG VIAL IVP SCH (09:30)
[2016-12-29] MEDS: predniSONE 20 MG TABLET PO SCH (09:30)
[2016-12-29] MEDS: Oseltamivir Phosphate 30 MG CAPSULE PO SCH (09:32)
--- NOTE | 2016-12-29 10:45 | Pulmonology Progress Note ---
Date of Encounter: 12/29/16 Time of Encounter: 10:43 Assessment and Plan (1) Acute respiratory failure with hypoxia Current Visit: Yes Status: Acute Multifactorial in etiology and due to acute lung injury, pneumonia, and acute exacerbation of COPD. His respiratory status was quite tenuous upon admission, but he clinically seems improved overall. Plan today would be to trial off the BiPAP to high flow oxygen via nasal cannula intermittently during the daytime hours. Recommend nightly continuous BiPAP therapy for now. (2) Pneumonia Current Visit: Yes Status: Acute Infectious presentation with fevers and cough associated with abnormal chest imaging. This is influenza with a bacterial superinfection (positive flu swab and positive strep pneumo urinary antigen). He is currently on Tamiflu and levofloxacin. There may be a component of acute lung injury. We are treating with steroids for severe community acquired pneumonia and early acute lung injury. Qualifiers: Pneumonia type: due to unspecified organism Laterality: bilateral Lung location: unspecified part of lung Qualified Code(s): J18.9 - Pneumonia, unspecified organism (3) Acute on chronic kidney failure Current Visit: Yes Status: Acute Chronic kidney disease by history with a creatinine in May 2016 of 1.28. The patient clinically appeared dry upon arrival in the setting of GI illness with diarrhea and poor by mouth intake. He responded well to IV fluid hydration. We will trend Chem-7 and urine output. Creatinine is now 1.96 and urine output is excellent. Holding further IV fluids in light of acute lung injury and avoidance of volume overload. (4) Elevated troponin Current Visit: Yes Status: Acute I suspect this is demand ischemia from acute illness coupled with acute renal failure. We will trend his troponin. A transthoracic echocardiogram feels a normal ejection fraction and diastolic dysfunction. No wall motion abnormalities noted. (5) COPD with acute exacerbation Current Visit: Yes Status: Acute Continue intravenous steroids and scheduled bronchodilators. Transitioned to by mouth prednisone on 12/29/2016, which can be followed by a 2 week taper. (6) Abdominal pain Current Visit: Yes Status: Acute Patient had presented with diarrhea and abdominal pain. Clinical presentation most consistent with a viral gastroenteritis. Diarrhea has stopped. The patient's abdominal exam is benign. Lactate is not elevated. I reviewed the CT scan of the abdomen which was obtained by the SD prior to admission with the radiologist. No acute intra-abdominal process noted on the CT scan. Monitor clinically for now. Qualifiers: Abdominal location: lower abdomen, unspecified Qualified Code(s): R10.30 - Lower abdominal pain, unspecified (7) History of tobacco use Current Visit: Yes Status: Acute Subjective Principal diagnosis: Acute respiratory failure Interval history: Patient reports feeling overall better since admission. Yesterday he was able to trial the BiPAP on and off, and he was stable on BiPAP overnight. He denies significant sputum production. No fever/chills. All other systems reviewed and otherwise negative. Objective PUL Vital signs: Last Vital Signs Temp 97.6 F 12/29/16 07:20 Pulse 86 12/29/16 09:40 Resp 14 12/29/16 09:40 BP 126/72 12/29/16 09:40 Pulse Ox 98 12/29/16 09:40 General: no acute distress, mildly increased work of breathing at rest Eyes: nonicteric ENT: oropharynx dry with BiPAP mask in place Neck: supple, no lymphadenopathy Lungs: Coarse bilateral breath sounds Cardiovascular: regular rate and rhythm Gastrointestinal: normoactive bowel sounds, soft, non-tender, non-distended Integumentary: normal Extremities: no cyanosis, no edema Musculoskeletal: no deformities Neuro: normal mental status, non-focal exam Psych: mood appropriate, affect normal Results - Laboratory Findings CBC and BMP: 12/28/16 03:35 12/29/16 04:08 ABG ABG pH 7.36 pH Units (7.32-7.45) 12/28/16 06:26 ABG pCO2 34 mmHg (35-45) L 12/28/16 06:26 ABG pO2 80 mmHg (85-104) L 12/28/16 06:26 ABG O2 Saturation 95 % (95-98) 12/28/16 06:26 PT/INR, D-dimer PT 14.2 Seconds (9.4-12.1) H 12/27/16 20:51 Abnormal lab findings: Abnormal lab results RBC 3.48 M/mcL (4.19-5.50) L 12/28/16 03:35 Hgb 10.1 g/dL (12.9-16.9) L D 12/28/16 03:35 Hct 31.0 % (37.5-50.1) L 12/28/16 03:35 RDW 15.5 % (11.5-14.5) H 12/28/16 03:35 Lymphocytes # 0.4 K/mcL (0.6-4.6) L 12/28/16 03:35 Toxic Granulation Present (Not Present) A 12/28/16 03:35 Large Platelets Present (Not Present) A 12/28/16 03:35 PT 14.2 Seconds (9.4-12.1) H 12/27/16 20:51 ABG pCO2 34 mmHg (35-45) L 12/28/16 06:26 ABG pO2 80 mmHg (85-104) L 12/28/16 06:26 ABG HCO3 19.2 mEQ/L (21-27) L 12/28/16 06:26 ABG Base Excess -5.6 mEq/L (-2.0 to 3.0) L 12/28/16 06:26 Potassium 3.4 mEq/L (3.5-4.5) L 12/29/16 04:08 BUN 54 mg/dL (8-26) H 12/29/16 04:08 Creatinine 1.96 mg/dL (0.72-1.25) H 12/29/16 04:08 Est GFR ( Amer) 41 (> 60) L 12/29/16 04:08 Est GFR (Non-Af Amer) 34 (> 60) L 12/29/16 04:08 BUN/Creatinine Ratio 28 (6-26) H 12/29/16 04:08 Glucose 154 mg/dL (70-99) H 12/29/16 04:08 POC Glucose 102 (58-89) H 12/28/16 01:06 Calculated Osmolality 308 (280-300) H 12/29/16 04:08 Calcium 8.5 mg/dL (8.6-10.8) L 12/29/16 04:08 AST 50 Units/L (5-34) H 12/28/16 03:35 Serum Total Protein 5.8 g/dL (6.0-8.3) L 12/28/16 03:35 Albumin 2.1 g/dL (3.5-5.0) L 12/28/16 03:35 Globulin 3.7 g/dL (2.4-3.5) H 12/28/16 03:35 Albumin/Globulin Ratio 0.6 (1.1-2.2) L 12/28/16 03:35 - Microbiology Findings Microbiology Findings: Microbiology, Last 48 Hours 12/28/16 18:30 Legionella Antigen - Final Urine,[place] Streptococcus pneumoniae Antigen (M - Final - Clinical Findings Intake & Output: Intake & Output 12/28/16 12/29/16 12/29/16 23:59 07:59 15:59 Intake Total 120 / 120 Output Total 700 / 700 900 / 900 Balance -580 / -580 -900 / -900 Weight 68.9 kg Consult Discharge Plan - Plan [facility]errals: [facility] [Primary Care Provider[facility] -
--- NOTE | 2016-12-29 13:04 | Electrocardiograph Report ---
[place] [id number] Test Date: 2016-12-28 Pat Name: Everette Fleming Department: 111 Room: 11 Gender: M Lens Inspector: : 1945 Requested By: Rogelio Hernandez Order Number: [id number] Reading MD: Juan F Sawyer Measurements Intervals [place] Rate: 141 P: -31 NM: 129 QRS: -80 QRSD: 118 T: 39 QT: 295 QTc: 377 Interpretive Statements SINUS TACHYCARDIA, POSSIBLE ATRIAL FLUTTER LOW QRS VOLTAGE IN PRECORDIAL LEADS RIGHT BUNDLE BRANCH BLOCK LEFT ANTERIOR FASCICULAR BLOCK Electronically Signed On 12-29-2016 13:02:46 EDT by Juan F Sawyer
[2016-12-29] MEDS: Levofloxacin 750 MG/150 ML 750 MG/150 ML BAG IVPB SCH (23:48)
[2016-12-30] MEDS: *HR* HYDROmorphone (PF) 1 MG/ML SYRINGE IVP PRN ×5 (02:44→20:37)
[2016-12-30 03:30] LABS: Calcium 8.7 mg/dL (8.6-10.8); Potassium 3.5 mEq/L (3.5-4.5)
[2016-12-30] MEDS: Ipratropium/Albuterol Neb 3 ML IH SCH ×5 (04:16→20:15)
[2016-12-30] MEDS: *HR* Heparin 5,000 UNIT/ML VIAL SQ SCH ×3 (06:12→20:37)
[2016-12-30] MEDS: Pantoprazole 40 MG VIAL IVP SCH (07:59)
[2016-12-30] MEDS: Oseltamivir Phosphate 30 MG CAPSULE PO SCH ×2 (08:00→19:53)
[2016-12-30] MEDS: predniSONE 20 MG TABLET PO SCH (08:00)
--- NOTE | 2016-12-30 10:03 | Pulmonology Progress Note ---
<Liu Gómez - Last Filed: 12/30/16 13:16> Date of Encounter: 12/30/16 Time of Encounter: 10:03 Assessment and Plan (1) Acute respiratory failure with hypoxia Current Visit: Yes Status: Acute Multifactorial, 2/2 flu infection, multifocal bacterial community acquired pneumonia and acute excerbation of COPD, now off of bipap, currently on high flow nasal cannula oxygen, satting above 92% on 10L, clinically his breathing has been improving, not back to baseline, he is not on home oxygen, likely he will need to do home oxygen test before discharge, con't duoneb, symbicort, PO steroid, tamiflu, IV abx of levaquin and oxygen support, con't to closely monitor his respiratory status in ICU, if con't to improve, likely transfer to medicine floor tomorrow. (2) Acute exacerbation of chronic obstructive pulmonary disease (COPD) Current Visit: Yes Status: Acute Likely 2/2 flu infection and multifactorial bacterial community acquired pneumonia, con't tamiflu, po steroid, IV abx, symbicort, duoneb ATC and oxygen support, clinically his breathing has been improving. (3) Community acquired bacterial pneumonia Current Visit: Yes Status: Acute Chest-x-ray showed multifocal pneumonia, streptococcus pneum urinary antigen was positive, legionella antigen and blood cultures x2 negative, con't IV levaquin, not septic, hemodynamically stable. (4) Acute on chronic kidney failure Current Visit: Yes Status: Acute This is likely 2/2 dehydration from poor po intake and diarrhea, after IV fluid hydration, his renal function con't to improve, now at his baseline, con't to monitor his renal function and avoid nephrotoxic agents. (5) Influenza Current Visit: Yes Status: Acute This was positive at [facility], con't tamiflu for total of five days, stop date is tomorrow. (6) Elevated troponin Current Visit: Yes Status: Acute Adynamic, likely 2/2 demand ischemia in a setting of acute exacerbation of COPD and acute respiratory failure, no active chest pain. (7) DVT prophylaxis Current Visit: Yes Status: Acute Heparin SQ daily. Subjective Principal diagnosis: Acute respiratory failure Interval history: 71 yo male with hx of asbestosis and COPD, transferred from [facility] to [place] for acute respiratory failure 2/2 flu infection, multifocal bacterial community acquired pneumonia and acute exacerbation of COPD. Pt seen and examined, he states that his breathing is better than yesterday but still not back to baseline, now off of bipap, currently on high flow nasal cannula oxygen, satting more than 92% on 10L, denies productive cough or chest pain, no bowel movement for a week, slight lower abd pain when he coughs. Objective PUL Vital signs: Last Vital Signs Temp 97.5 F L 12/30/16 07:40 Pulse 97 12/30/16 08:00 Resp 13 12/30/16 08:04 BP 138/88 12/30/16 08:04 Pulse Ox 97 12/30/16 08:04 General appearance: no acute distress, alert Eyes: nonicteric ENT: oropharynx moist Neck: supple Auscultation: bilateral: wheezes (slightly at upper b/l), rhonchi (at base b/l) Cardiovascular: regular rate and rhythm Gastrointestinal: normoactive bowel sounds, soft, tender (slightly to palpate at lower b/l), non-distended Integumentary: normal Extremities: no cyanosis, no edema, no clubbing Musculoskeletal: no deformities normal mental status, non-focal exam mood appropriate, affect normal Results - Laboratory Findings CBC and BMP: 12/28/16 03:35 12/30/16 03:04 ABG ABG pH 7.36 pH Units (7.32-7.45) 12/28/16 06:26 ABG pCO2 34 mmHg (35-45) L 12/28/16 06:26 ABG pO2 80 mmHg (85-104) L 12/28/16 06:26 ABG O2 Saturation 95 % (95-98) 12/28/16 06:26 PT/INR, D-dimer PT 14.2 Seconds (9.4-12.1) H 12/27/16 20:51 Abnormal lab findings: Abnormal lab results RBC 3.48 M/mcL (4.19-5.50) L 12/28/16 03:35 Hgb 10.1 g/dL (12.9-16.9) L D 12/28/16 03:35 Hct 31.0 % (37.5-50.1) L 12/28/16 03:35 RDW 15.5 % (11.5-14.5) H 12/28/16 03:35 Lymphocytes # 0.4 K/mcL (0.6-4.6) L 12/28/16 03:35 Toxic Granulation Present (Not Present) A 12/28/16 03:35 Large Platelets Present (Not Present) A 12/28/16 03:35 PT 14.2 Seconds (9.4-12.1) H 12/27/16 20:51 ABG pCO2 34 mmHg (35-45) L 12/28/16 06:26 ABG pO2 80 mmHg (85-104) L 12/28/16 06:26 ABG HCO3 19.2 mEQ/L (21-27) L 12/28/16 06:26 ABG Base Excess -5.6 mEq/L (-2.0 to 3.0) L 12/28/16 06:26 Chloride 112 mEq/L (98-109) H 12/30/16 03:04 BUN 51 mg/dL (8-26) H 12/30/16 03:04 Creatinine 1.66 mg/dL (0.72-1.25) H 12/30/16 03:04 Est GFR ( Amer) 50 (> 60) L 12/30/16 03:04 Est GFR (Non-Af Amer) 41 (> 60) L 12/30/16 03:04 BUN/Creatinine Ratio 31 (6-26) H 12/30/16 03:04 Glucose 176 mg/dL (70-99) H 12/30/16 03:04 POC Glucose 102 (58-89) H 12/28/16 01:06 Calculated Osmolality 310 (280-300) H 12/30/16 03:04 AST 50 Units/L (5-34) H 12/28/16 03:35 Serum Total Protein 5.8 g/dL (6.0-8.3) L 12/28/16 03:35 Albumin 2.1 g/dL (3.5-5.0) L 12/28/16 03:35 Globulin 3.7 g/dL (2.4-3.5) H 12/28/16 03:35 Albumin/Globulin Ratio 0.6 (1.1-2.2) L 12/28/16 03:35 - Microbiology Findings Microbiology Findings: Microbiology, Last 48 Hours 12/28/16 18:30 Legionella Antigen - Final Urine,[place] Streptococcus pneumoniae Antigen (M - Final - Clinical Findings Intake & Output: Intake & Output 12/29/16 12/30/16 12/30/16 23:59 07:59 15:59 Intake Total 150 / 150 360 / 360 Output Total 800 / 800 700 / 700 Balance -800 / -800 -550 / -550 360 / 360 Weight 71.3 kg Consult Discharge Plan - Plan [facility]errals: [facility] [Primary Care Provider[facility] - <Pat Ortiz M - Last Filed: 12/30/16 16:42> Objective PUL Vital signs: Last Vital Signs Temp 97.6 F 12/30/16 15:58 Pulse 100 12/30/16 16:00 Resp 16 12/30/16 16:21 BP 131/81 12/30/16 16:00 Pulse Ox 99 12/30/16 16:21 Results - Laboratory Findings CBC and BMP: 12/28/16 03:35 12/30/16 03:04 ABG ABG pH 7.36 pH Units (7.32-7.45) 12/28/16 06:26 ABG pCO2 34 mmHg (35-45) L 12/28/16 06:26 ABG pO2 80 mmHg (85-104) L 12/28/16 06:26 ABG O2 Saturation 95 % (95-98) 12/28/16 06:26 PT/INR, D-dimer PT 14.2 Seconds (9.4-12.1) H 12/27/16 20:51 Abnormal lab findings: Abnormal lab results RBC 3.48 M/mcL (4.19-5.50) L 12/28/16 03:35 Hgb 10.1 g/dL (12.9-16.9) L D 12/28/16 03:35 Hct 31.0 % (37.5-50.1) L 12/28/16 03:35 RDW 15.5 % (11.5-14.5) H 12/28/16 03:35 Lymphocytes # 0.4 K/mcL (0.6-4.6) L 12/28/16 03:35 Toxic Granulation Present (Not Present) A 12/28/16 03:35 Large Platelets Present (Not Present) A 12/28/16 03:35 PT 14.2 Seconds (9.4-12.1) H 12/27/16 20:51 ABG pCO2 34 mmHg (35-45) L 12/28/16 06:26 ABG pO2 80 mmHg (85-104) L 12/28/16 06:26 ABG HCO3 19.2 mEQ/L (21-27) L 12/28/16 06:26 ABG Base Excess -5.6 mEq/L (-2.0 to 3.0) L 12/28/16 06:26 Chloride 112 mEq/L (98-109) H 12/30/16 03:04 BUN 51 mg/dL (8-26) H 12/30/16 03:04 Creatinine 1.66 mg/dL (0.72-1.25) H 12/30/16 03:04 Est GFR ( Amer) 50 (> 60) L 12/30/16 03:04 Est GFR (Non-Af Amer) 41 (> 60) L 12/30/16 03:04 BUN/Creatinine Ratio 31 (6-26) H 12/30/16 03:04 Glucose 176 mg/dL (70-99) H 12/30/16 03:04 POC Glucose 102 (58-89) H 12/28/16 01:06 Calculated Osmolality 310 (280-300) H 12/30/16 03:04 AST 50 Units/L (5-34) H 12/28/16 03:35 Serum Total Protein 5.8 g/dL (6.0-8.3) L 12/28/16 03:35 Albumin 2.1 g/dL (3.5-5.0) L 12/28/16 03:35 Globulin 3.7 g/dL (2.4-3.5) H 12/28/16 03:35 Albumin/Globulin Ratio 0.6 (1.1-2.2) L 12/28/16 03:35 - Microbiology Findings Microbiology Findings: Microbiology, Last 48 Hours 12/28/16 18:30 Legionella Antigen - Final Urine,[place] Streptococcus pneumoniae Antigen (M - Final - Clinical Findings Intake & Output: Intake & Output 12/30/16 12/30/16 12/30/16 07:59 15:59 23:59 Intake Total 150 / 150 1160 / 1160 Output Total 700 / 700 400 / 400 Balance -550 / -550 760 / 760 Weight 71.3 kg - Attending Attestation I examined this patient and my medical decision-making was reviewed with the DIRECTOR GLOBAL DEVELOPMENT/PA/Advanced Practice Nurse/Resident Physician. I agree with the documented findings, disposition and treatment plan as described except to the extent set forth below. Patient seen and examined. Labs, radiology, chart personally reviewed. Agree with resident's history and physical, assessment, plan with following comments: CREW MANAGER: Patient follows commands, Pulmonary: Acceptable oxygenation and ventilation. Patient is tolerating high flow O2 and was able to wean off BiPAP which will be used only as PRN now. Cardiovascular: stable GI: Nutrition per dietary and GI prophylaxis per routine Heme: DVT prophylaxis per routine ID: Continue antibiotics and plan to de-escalation Renal; urine out put and renal funtion reviewed Endorcine: blood glucose is monitored Lines: all lines checked and no evidence of infections Skin: skin care to prevent pressure ulcers per nursing routine care
--- NOTE | 2016-12-30 10:18 | Electrocardiograph Report ---
[place] [id number] Test Date: 2016-12-27 Pat Name: Everette Fleming Department: 104 Room: 11 Gender: M Telephoner: : 1945 Requested By: Prabhu Olivier Order Number: [id number] Reading MD: Gio Aparicio MD Measurements Intervals [place] Rate: 133 P: 40 ND: 126 QRS: 270 QRSD: 109 T: 50 QT: 292 QTc: 370 Interpretive Statements SINUS TACHYCARDIA INCOMPLETE RIGHT BUNDLE BRANCH BLOCK Electronically Signed On 12-30-2016 10:16:22 EDT by Gio Aparicio MD
[2016-12-30] MEDS: Ondansetron 4 MG/2 ML VIAL IVP PRN ×2 (10:57→16:19)
[2016-12-30] MEDS: Budesonide/Formoterol 160/4.5 MDI IH SCH ×2 (11:22→20:15)
[2016-12-31] MEDS: Ondansetron 4 MG/2 ML VIAL IVP PRN ×2 (00:59→07:41)
[2016-12-31] MEDS: *HR* HYDROmorphone (PF) 1 MG/ML SYRINGE IVP PRN ×5 (01:00→20:35)
[2016-12-31 03:24] LABS: Hematocrit 29.9 % (37.5-50.1); Hemoglobin 9.9 g/dL (12.9-16.9); Mean Corpuscular HGB Conc 33.1 g/dL (31.6-35.5); Mean Corpuscular Hemoglobin 29.1 pg (28.0-33.3); Mean Corpuscular Volume 87.9 fL (83.0-100.0); Mean Platelet Volume 10.8 fL (9.4-12.4); Nucleated Red Blood Cells 0.2 /100 WBC (0); Platelet Count 231 K/mcL (140-400); Red Cell Distribution Width 15.7 % (11.5-14.5)
[2016-12-31 03:32] LABS: Calcium 8.5 mg/dL (8.6-10.8); Potassium 3.7 mEq/L (3.5-4.5)
[2016-12-31] MEDS ORDERED: *HR* Metoprolol 5 MG/5 ML VIAL IVP PRN (03:46)
[2016-12-31 04:00] LABS: Lymphocytes # 1.6 K/mcL (0.6-4.6); Monocytes # 0.2 K/mcL (0.0-1.3); Neutrophils # 9.3 K/mcL (1.6-8.9); Platelet Estimate Normal (Normal)
[2016-12-31] MEDS: *HR* Heparin 5,000 UNIT/ML VIAL SQ SCH (04:27)
[2016-12-31 05:29] LABS: VBG HCO3 25.2 mEq/L (21-27); VBG PH 7.43 pH Units (7.32-7.42)
[2016-12-31 05:35] LABS: Ionized Calcium 1.26 mmol/L (1.15-1.35)
[2016-12-31 06:06] LABS: Magnesium 1.7 mg/dL (1.6-2.6); Phosphorous 2.9 mg/dL (2.3-4.7)
[2016-12-31] MEDS: Ipratropium/Albuterol Neb 3 ML IH SCH ×4 (07:17→21:01)
[2016-12-31] MEDS: Budesonide/Formoterol 160/4.5 MDI IH SCH ×2 (07:18→21:02)
[2016-12-31] MEDS: Pantoprazole 40 MG VIAL IVP SCH (07:40)
[2016-12-31] MEDS: Oseltamivir Phosphate 30 MG CAPSULE PO SCH ×2 (07:41→20:34)
[2016-12-31] MEDS: predniSONE 20 MG TABLET PO SCH (07:41)
--- NOTE | 2016-12-31 09:11 | Pulmonology Progress Note ---
<Liu Gómez - Last Filed: 12/31/16 13:22> Date of Encounter: 12/31/16 Time of Encounter: 09:11 Assessment and Plan (1) Acute respiratory failure with hypoxia Current Visit: Yes Status: Acute Patient's respiratory status has improved compare to yesterday, his acute respiratory failure was multifactorial 2/2 flu infection, multifocal bacterial community acquired pneumonia and acute excerbation of COPD, now off of bipap, currently on high flow nasal cannula oxygen, satting above 92% on 4L, con't duoneb, symbicort, PO steroid taper, tamiflu, IV abx of levaquin and oxygen support, he is stable to transfer to medical floor from ICU today. (2) Acute exacerbation of chronic obstructive pulmonary disease (COPD) Current Visit: Yes Status: Acute Likely 2/2 flu infection and multifactorial bacterial community acquired pneumonia, con't tamiflu, po steroid taper, IV abx, symbicort, duoneb ATC and oxygen support, clinically his breathing has improved. (3) Atrial fibrillation with RVR Current Visit: Yes Status: Acute Last night patient had a palpitation and EKG showed atrial fibrillation with RVR , patient has no known history of A. fib, patient was recently started Lopressor 12.5 mg by mouth twice a day for his hypertension, CHADSVASC score is 2, explained to pt risk vs benefit of anticoagulation, pt agreeable to start anticoagulation, will start him on coumadin today, bridge it with therapeutic lovenox, check INR in AM, echo was obtained during this hospital stay and LVEF 60 to 65%, normal LV size and systolic functin, no pulm HTN, will check TSH in AM. (4) Acute renal failure superimposed on stage 3 chronic kidney disease Current Visit: Yes Status: Acute This is likely 2/2 dehydration from poor po intake and diarrhea, after IV fluid hydration, his renal function con't to improve, now at his baseline, con't to monitor his renal function and avoid nephrotoxic agents. (5) Community acquired bacterial pneumonia Current Visit: Yes Status: Acute Chest-x-ray showed multifocal pneumonia, streptococcus pneum urinary antigen was positive, legionella antigen and blood cultures x2 negative, con't IV levaquin, today's day 4 of antibiotic, he is not septic, hemodynamically stable. (6) Influenza Current Visit: Yes Status: Acute This was positive at [place], con't tamiflu for total of five days, stop date is today. (7) Elevated troponin Current Visit: Yes Status: Acute Adynamic, likely 2/2 demand ischemia in a setting of acute exacerbation of COPD and acute respiratory failure, no active chest pain. (8) DVT prophylaxis Current Visit: Yes Status: Acute Coumadin, bridge with lovenox. Subjective Principal diagnosis: Acute respiratory failure Interval history: 71 yo male with hx of asbestosis and COPD, transferred from [place] hospital to [place] for acute respiratory failure 2/2 flu infection, multifocal bacterial community acquired pneumonia and acute exacerbation of COPD. Pt seen and examined, he states that his breathing is better than yesterday, almost back to his baseline, now off of bipap, currently on high flow nasal cannula oxygen, satting more than 92% on 4 L, denies productive cough or chest pain, no bowel movement still, slight lower abd pain when he coughs, overnight he had a palpitation and obtained EKG showed A. fib RVR. Objective PUL Vital signs: Last Vital Signs Temp 97.8 F 12/31/16 09:02 Pulse 99 12/31/16 08:11 Resp 22 12/31/16 08:11 BP 108/50 12/31/16 08:11 Pulse Ox 95 12/31/16 08:11 General appearance: no acute distress, alert Eyes: nonicteric ENT: oropharynx moist Neck: supple Effort: normal Auscultation: bilateral: diminished breath sounds, wheezes (Slightly at bases bilaterally) Cardiovascular: irregular rhythm Gastrointestinal: normoactive bowel sounds, non-distended Integumentary: normal Extremities: no cyanosis, no edema, no clubbing Musculoskeletal: no deformities normal mental status, non-focal exam mood appropriate, affect normal Results - Laboratory Findings CBC and BMP: 12/31/16 03:08 12/31/16 03:08 ABG ABG pH 7.36 pH Units (7.32-7.45) 12/28/16 06:26 ABG pCO2 34 mmHg (35-45) L 12/28/16 06:26 ABG pO2 80 mmHg (85-104) L 12/28/16 06:26 ABG O2 Saturation 95 % (95-98) 12/28/16 06:26 PT/INR, D-dimer PT 14.2 Seconds (9.4-12.1) H 12/27/16 20:51 Abnormal lab findings: Abnormal lab results RBC 3.40 M/mcL (4.19-5.50) L 12/31/16 03:08 Hgb 9.9 g/dL (12.9-16.9) L 12/31/16 03:08 Hct 29.9 % (37.5-50.1) L 12/31/16 03:08 RDW 15.7 % (11.5-14.5) H 12/31/16 03:08 Neutrophils # 9.3 K/mcL (1.6-8.9) H 12/31/16 03:08 Nucleated RBCs/100 WBC 0.2 /100 WBC (0) H 12/31/16 03:08 Toxic Granulation Present (Not Present) A 12/28/16 03:35 Large Platelets Present (Not Present) A 12/28/16 03:35 PT 14.2 Seconds (9.4-12.1) H 12/27/16 20:51 ABG pCO2 34 mmHg (35-45) L 12/28/16 06:26 ABG pO2 80 mmHg (85-104) L 12/28/16 06:26 ABG HCO3 19.2 mEQ/L (21-27) L 12/28/16 06:26 ABG Base Excess -5.6 mEq/L (-2.0 to 3.0) L 12/28/16 06:26 VBG pH 7.43 pH Units (7.32-7.42) H 12/31/16 05:22 VBG pCO2 38 mmHg (41-51) L 12/31/16 05:22 VBG pO2 157 mmHg (25-40) H 12/31/16 05:22 Chloride 110 mEq/L (98-109) H 12/31/16 03:08 BUN 40 mg/dL (8-26) H D 12/31/16 03:08 Creatinine 1.42 mg/dL (0.72-1.25) H 12/31/16 03:08 Est GFR ( Amer) 59 (> 60) L 12/31/16 03:08 Est GFR (Non-Af Amer) 49 (> 60) L 12/31/16 03:08 BUN/Creatinine Ratio 28 (6-26) H 12/31/16 03:08 Glucose 158 mg/dL (70-99) H 12/31/16 03:08 POC Glucose 102 (58-89) H 12/28/16 01:06 Calculated Osmolality 303 (280-300) H 12/31/16 03:08 Calcium 8.5 mg/dL (8.6-10.8) L 12/31/16 03:08 AST 50 Units/L (5-34) H 12/28/16 03:35 Serum Total Protein 5.8 g/dL (6.0-8.3) L 12/28/16 03:35 Albumin 2.1 g/dL (3.5-5.0) L 12/28/16 03:35 Globulin 3.7 g/dL (2.4-3.5) H 12/28/16 03:35 Albumin/Globulin Ratio 0.6 (1.1-2.2) L 12/28/16 03:35 - Clinical Findings Intake & Output: Intake & Output 12/30/16 12/31/16 12/31/16 23:59 07:59 15:59 Intake Total 1760 / 1760 200 / 200 Output Total 300 / 300 800 / 800 200 / 200 Balance 1460 / 1460 -600 / -600 -200 / -200 Weight 72.206 kg - VTE Documentation of Mechanical Device: Intermittent pneumatic compression device Consult Discharge Plan - Plan [facility]errals: [facility] [Primary Care Provider] - <Pat Ortiz - Last Filed: 12/31/16 16:50> Objective PUL Vital signs: Last Vital Signs Temp 97.0 F L 12/31/16 15:47 Pulse 81 12/31/16 16:42 Resp 16 12/31/16 16:42 BP 116/72 12/31/16 16:42 Pulse Ox 95 12/31/16 16:42 Results - Laboratory Findings CBC and BMP: 12/31/16 03:08 12/31/16 03:08 ABG ABG pH 7.36 pH Units (7.32-7.45) 12/28/16 06:26 ABG pCO2 34 mmHg (35-45) L 12/28/16 06:26 ABG pO2 80 mmHg (85-104) L 12/28/16 06:26 ABG O2 Saturation 95 % (95-98) 12/28/16 06:26 PT/INR, D-dimer PT 14.2 Seconds (9.4-12.1) H 12/27/16 20:51 Abnormal lab findings: Abnormal lab results RBC 3.40 M/mcL (4.19-5.50) L 12/31/16 03:08 Hgb 9.9 g/dL (12.9-16.9) L 12/31/16 03:08 Hct 29.9 % (37.5-50.1) L 12/31/16 03:08 RDW 15.7 % (11.5-14.5) H 12/31/16 03:08 Neutrophils # 9.3 K/mcL (1.6-8.9) H 12/31/16 03:08 Nucleated RBCs/100 WBC 0.2 /100 WBC (0) H 12/31/16 03:08 Toxic Granulation Present (Not Present) A 12/28/16 03:35 Large Platelets Present (Not Present) A 12/28/16 03:35 PT 14.2 Seconds (9.4-12.1) H 12/27/16 20:51 ABG pCO2 34 mmHg (35-45) L 12/28/16 06:26 ABG pO2 80 mmHg (85-104) L 12/28/16 06:26 ABG HCO3 19.2 mEQ/L (21-27) L 12/28/16 06:26 ABG Base Excess -5.6 mEq/L (-2.0 to 3.0) L 12/28/16 06:26 VBG pH 7.43 pH Units (7.32-7.42) H 12/31/16 05:22 VBG pCO2 38 mmHg (41-51) L 12/31/16 05:22 VBG pO2 157 mmHg (25-40) H 12/31/16 05:22 Chloride 110 mEq/L (98-109) H 12/31/16 03:08 BUN 40 mg/dL (8-26) H D 12/31/16 03:08 Creatinine 1.42 mg/dL (0.72-1.25) H 12/31/16 03:08 Est GFR ( Amer) 59 (> 60) L 12/31/16 03:08 Est GFR (Non-Af Amer) 49 (> 60) L 12/31/16 03:08 BUN/Creatinine Ratio 28 (6-26) H 12/31/16 03:08 Glucose 158 mg/dL (70-99) H 12/31/16 03:08 POC Glucose 102 (58-89) H 12/28/16 01:06 Calculated Osmolality 303 (280-300) H 12/31/16 03:08 Calcium 8.5 mg/dL (8.6-10.8) L 12/31/16 03:08 AST 50 Units/L (5-34) H 12/28/16 03:35 Serum Total Protein 5.8 g/dL (6.0-8.3) L 12/28/16 03:35 Albumin 2.1 g/dL (3.5-5.0) L 12/28/16 03:35 Globulin 3.7 g/dL (2.4-3.5) H 12/28/16 03:35 Albumin/Globulin Ratio 0.6 (1.1-2.2) L 12/28/16 03:35 - Microbiology Findings Microbiology Findings: Microbiology, Last 48 Hours 12/31/16 11:21 Sputum Culture - Final Sputum - Clinical Findings Intake & Output: Intake & Output 12/31/16 12/31/16 12/31/16 07:59 15:59 23:59 Intake Total 200 / 200 Output Total 800 / 800 400 / 400 Balance -600 / -600 -400 / -400 Weight 72.206 kg - Attending Attestation I examined this patient and my medical decision-making was reviewed with the PERCUSSION INSTRUMENT REPAIRER/PA/Advanced Practice Nurse/Resident Physician. I agree with the documented findings, disposition and treatment plan as described except to the extent set forth below. Patient seen and examined. Labs, radiology, chart personally reviewed. Agree with resident's history and physical, assessment, plan with following comments: WET SANDER: Patient follows commands, Pulmonary: Acceptable oxygenation and ventilation and feeling better. Continue current treatment and will transfer to floor. Cardiovascular: stable GI: Nutrition per dietary and GI prophylaxis per routine Heme: DVT prophylaxis per routine ID: Continue antibiotics and plan to de-escalation Renal; urine out put and renal funtion reviewed Endorcine: blood glucose is monitored Lines: all lines checked and no evidence of infections Skin: skin care to prevent pressure ulcers per nursing routine care
[2016-12-31] MEDS ORDERED: Ondansetron 4 MG/2 ML VIAL IVP PRN (15:17)
[2016-12-31] MEDS ORDERED: Acetaminophen 325 MG TABLET PO PRN (15:17)
[2016-12-31] MEDS ORDERED: Naloxone 0.4 MG/ML INJ IVP PRN (15:17)
--- NOTE | 2016-12-31 16:09 | Electrocardiograph Report ---
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
[2016-12-31] MEDS ORDERED: *HR* Enoxaparin 80 MG/0.8 ML SYRINGE SQ SCH (18:00)
[2016-12-31] MEDS ORDERED: *HR* Warfarin 5 MG TABLET PO SCH (18:00)
[2016-12-31] MEDS ORDERED: Warfarin perPT PO PRN ×2 (18:00)
[2016-12-31] MEDS: *HR* Warfarin 5 MG TABLET PO SCH (18:06)
[2016-12-31] MEDS: *HR* Enoxaparin 80 MG/0.8 ML SYRINGE SQ SCH (18:06)
[2016-12-31] MEDS ORDERED: Budesonide/Formoterol 160/4.5 MDI IH SCH (22:00)
[2017-01-01] MEDS: *HR* HYDROmorphone (PF) 1 MG/ML SYRINGE IVP PRN ×5 (00:48→19:55)
[2017-01-01] MEDS ORDERED: Levofloxacin 750 MG/150 ML 750 MG/150 ML BAG IVPB SCH (01:00)
[2017-01-01] MEDS: *HR* Enoxaparin 80 MG/0.8 ML SYRINGE SQ SCH ×2 (05:48→17:03)
[2017-01-01 06:26] LABS: INR 1.4; Prothrombin Time 15.1 Seconds (9.4-12.1)
[2017-01-01 06:48] LABS: BUN/Creatinine Ratio 27 (6-26); Blood Urea Nitrogen 33 mg/dL (8-26); Calcium 8.4 mg/dL (8.6-10.8); Carbon Dioxide 24 mEq/L (19-29); Chloride 108 mEq/L (98-109); Glucose 93 mg/dL (70-99); Osmolality,Calculated 295 (280-300); Sodium 139 mEq/L (136-145); eGFR For African Americans > 60 (> 60); eGFR For Non-African Americans 57 (> 60)
[2017-01-01 07:11] LABS: Thyroid Stimulating Hormone 0.168 mcIU/mL (0.350-4.840)
[2017-01-01] MEDS: Ipratropium/Albuterol Neb 3 ML IH SCH ×5 (07:48→20:56)
[2017-01-01] MEDS: Budesonide/Formoterol 160/4.5 MDI IH SCH ×2 (07:58→20:57)
[2017-01-01] MEDS ORDERED: predniSONE 10 MG TABLET PO SCH (09:00)
[2017-01-01] MEDS: predniSONE 10 MG TABLET PO SCH (09:45)
[2017-01-01] MEDS: Oseltamivir Phosphate 30 MG CAPSULE PO SCH ×2 (09:46→19:55)
[2017-01-01] MEDS: Pantoprazole 40 MG VIAL IVP SCH (09:46)
[2017-01-01] MEDS: *HR* Warfarin 5 MG TABLET PO SCH (17:03)
--- NOTE | 2017-01-01 17:18 | Internal Med Progress Note ---
Date of Encounter: 01/01/17 Time of Encounter: 07:15 - Assessment and plan (1) Acute respiratory failure with hypoxia Current Visit: Yes Status: Acute Assessment and plan: Improving, continue the current antibiotics and breathing treatments (2) Acute exacerbation of chronic obstructive pulmonary disease (COPD) Current Visit: Yes Status: Acute (3) Community acquired bacterial pneumonia Current Visit: Yes Status: Acute Assessment and plan: Improving, continue current IV antibiotics and breathing treatments (4) Influenza Current Visit: Yes Status: Acute (5) Atrial fibrillation with RVR Current Visit: Yes Status: Resolved (6) Acute renal failure superimposed on stage 3 chronic kidney disease Current Visit: Yes Status: Acute - Time Spent With Patient 25 - 35 minutes - Subjective Interval history: Seen early in the morning. He states she is feeling much much better than what he did as he came in. He still feels like he has got away to go. - Constitutional Vitals: Temp Pulse Resp BP Pulse Ox 98.3 F 90 16 132/72 96 01/01/17 10:56 01/01/17 10:56 01/01/17 16:49 01/01/17 10:56 01/01/17 16:49 General appearance: Present: cooperative, A&O X 3, pleasant, answers questions appropriately - Respiratory Respiratory exam: Present: decreased breath sounds, rhonchi (Occasional scattered rhonchi), wheezes (Occasional scattered wheezes) Internal Medicine: Result - Labs CBC & Chem 7: 12/31/16 03:08 01/01/17 05:14 Labs: BMP 01/01/17 05:14 Sodium 139 Potassium 4.0 Chloride 108 Carbon Dioxide 24 BUN 33 H Creatinine 1.24 Glucose 93 Calcium 8.4 L - ABG Interpretation ABG results: ABG ABG pH 7.36 pH Units (7.32-7.45) 12/28/16 06:26 ABG pCO2 34 mmHg (35-45) L 12/28/16 06:26 ABG pO2 80 mmHg (85-104) L 12/28/16 06:26 ABG O2 Saturation 95 % (95-98) 12/28/16 06:26 PT/INR, D-dimer PT 15.1 Seconds (9.4-12.1) H 01/01/17 05:14 - VTE Documentation of Mechanical Device: Intermittent pneumatic compression device Consult Discharge Plan - Plan [facility]errals: [facility] [Primary Care Provider] - ([facility]...)
[2017-01-02] MEDS: *HR* HYDROmorphone (PF) 1 MG/ML SYRINGE IVP PRN ×6 (00:40→21:58)
[2017-01-02] MEDS: *HR* Enoxaparin 80 MG/0.8 ML SYRINGE SQ SCH (05:01)
[2017-01-02 06:56] LABS: INR 2.3; Prothrombin Time 25.8 Seconds (9.4-12.1)
[2017-01-02 07:13] LABS: BUN/Creatinine Ratio 25 (6-26); Blood Urea Nitrogen 28 mg/dL (8-26); Calcium 8.3 mg/dL (8.6-10.8); Carbon Dioxide 27 mEq/L (19-29); Chloride 107 mEq/L (98-109); Glucose 101 mg/dL (70-99); Osmolality,Calculated 296 (280-300); Sodium 140 mEq/L (136-145); eGFR For African Americans > 60 (> 60); eGFR For Non-African Americans > 60 (> 60)
[2017-01-02 07:32] LABS: Hematocrit 33.1 % (37.5-50.1); Hemoglobin 10.7 g/dL (12.9-16.9); Mean Corpuscular HGB Conc 32.3 g/dL (31.6-35.5); Mean Corpuscular Hemoglobin 28.4 pg (28.0-33.3); Mean Corpuscular Volume 87.8 fL (83.0-100.0); Mean Platelet Volume 10.5 fL (9.4-12.4); Platelet Count 288 K/mcL (140-400); Red Blood Count 3.77 M/mcL (4.19-5.50); Red Cell Distribution Width 15.6 % (11.5-14.5)
[2017-01-02] MEDS: Ipratropium/Albuterol Neb 3 ML IH SCH ×4 (07:55→19:58)
[2017-01-02] MEDS: Budesonide/Formoterol 160/4.5 MDI IH SCH ×2 (07:58→19:58)
[2017-01-02] MEDS: predniSONE 10 MG TABLET PO SCH (09:02)
[2017-01-02] MEDS: Pantoprazole 40 MG VIAL IVP SCH (09:04)
[2017-01-02 09:22] LABS: Lymphocytes # 1.5 K/mcL (0.6-4.6); Monocytes # 0.4 K/mcL (0.0-1.3); Neutrophils # 8.7 K/mcL (1.6-8.9); Toxic Granulation Present (Not Present)
[2017-01-02 09:24] LABS: Platelet Estimate Normal (Normal); Poikilocytosis 1+ (Not Present)
[2017-01-02 09:25] LABS: Schistocytes 1+ (Not Present)
--- NOTE | 2017-01-02 16:51 | Internal Med Progress Note ---
Date of Encounter: 01/02/17 Time of Encounter: 09:00 - Assessment and plan (1) Acute respiratory failure with hypoxia Current Visit: Yes Status: Acute Assessment and plan: #1 discontinue IV Levaquin #2 switched over to by mouth Levaquin #3 he is already on oral steroids. #4 anticipate possible discharge in next 24-48 hours (2) Acute exacerbation of chronic obstructive pulmonary disease (COPD) Current Visit: Yes Status: Acute (3) Community acquired bacterial pneumonia Current Visit: Yes Status: Acute (4) Influenza Current Visit: Yes Status: Acute (5) Atrial fibrillation with RVR Current Visit: Yes Status: Resolved (6) Acute renal failure superimposed on stage 3 chronic kidney disease Current Visit: Yes Status: Acute - Subjective Interval history: He states she is feeling much much better than what he did as he came in. He still feels like he has got away to go. He states he still gets short of breath with any activity. He denies any worsening cough or worsening pain issues. He would like to go through rehabilitation and I told him that is found to me like he will be set up for inpatient rehabilitation at [facility] - Constitutional Vitals: Temp Pulse Resp BP Pulse Ox 98.6 F 99 18 136/86 97 01/02/17 11:22 01/02/17 11:22 01/02/17 11:42 01/02/17 11:22 01/02/17 11:42 General appearance: Present: cooperative, A&O X 3, pleasant, answers questions appropriately - Respiratory Respiratory exam: Present: CTAB, rhonchi (Scattered rhonchi throughout all lung price. He sounds better than he did yesterday though.) - Cardiovascular Cardiovascular exam: Present: RRR - Skin Skin exam: Present: dry, normal color, warm Internal Medicine: Result - Labs CBC & Chem 7: 01/02/17 06:24 01/02/17 06:24 Labs: Short CBC 01/02/17 Range/Units 06:24 WBC 11.5 H (4.3-11.1) K/mcL Hgb 10.7 L (12.9-16.9) g/dL Hct 33.1 L (37.5-50.1) % Plt Count 288 (140-400) K/mcL Neutrophils # 8.7 (1.6-8.9) K/mcL BMP 01/02/17 06:24 Sodium 140 Potassium 4.0 Chloride 107 Carbon Dioxide 27 BUN 28 H Creatinine 1.13 Glucose 101 H Calcium 8.3 L - ABG Interpretation ABG results: ABG ABG pH 7.36 pH Units (7.32-7.45) 12/28/16 06:26 ABG pCO2 34 mmHg (35-45) L 12/28/16 06:26 ABG pO2 80 mmHg (85-104) L 12/28/16 06:26 ABG O2 Saturation 95 % (95-98) 12/28/16 06:26 PT/INR, D-dimer PT 25.8 Seconds (9.4-12.1) H D 01/02/17 06:24 - VTE Documentation of Mechanical Device: Intermittent pneumatic compression device Consult Discharge Plan - Plan Referrals: [facility] [Primary Care Provider] - ([facility]...)
[2017-01-02] MEDS: levoFLOXacin 750 MG TABLET PO SCH (20:48)
[2017-01-03] MEDS: *HR* HYDROmorphone (PF) 1 MG/ML SYRINGE IVP PRN ×5 (01:57→23:04)
[2017-01-03 06:30] LABS: Hemoglobin 10.5 g/dL (12.9-16.9); INR 2.3; Mean Corpuscular HGB Conc 33.9 g/dL (31.6-35.5); Mean Corpuscular Hemoglobin 29.7 pg (28.0-33.3); Mean Corpuscular Volume 87.6 fL (83.0-100.0); Mean Platelet Volume 10.8 fL (9.4-12.4); Nucleated Red Blood Cells 0.2 /100 WBC (0); Platelet Count 273 K/mcL (140-400); Red Blood Count 3.54 M/mcL (4.19-5.50); Red Cell Distribution Width 15.3 % (11.5-14.5)
[2017-01-03 06:56] LABS: BUN/Creatinine Ratio 22 (6-26); Blood Urea Nitrogen 23 mg/dL (8-26); Calcium 8.7 mg/dL (8.6-10.8); Carbon Dioxide 29 mEq/L (19-29); Chloride 104 mEq/L (98-109); Glucose 87 mg/dL (70-99); Osmolality,Calculated 293 (280-300); Sodium 140 mEq/L (136-145); eGFR For African Americans > 60 (> 60); eGFR For Non-African Americans > 60 (> 60)
[2017-01-03 07:15] LABS: Lymphocytes # 0.7 K/mcL (0.6-4.6); Monocytes # 0.1 K/mcL (0.0-1.3); Neutrophils # 9.2 K/mcL (1.6-8.9); Platelet Estimate Normal (Normal)
[2017-01-03] MEDS: Ipratropium/Albuterol Neb 3 ML IH SCH ×4 (07:36→20:18)
[2017-01-03] MEDS: Budesonide/Formoterol 160/4.5 MDI IH SCH ×2 (07:37→20:18)
[2017-01-03] MEDS: predniSONE 10 MG TABLET PO SCH (07:53)
[2017-01-03] MEDS: Pantoprazole 40 MG VIAL IVP SCH (07:53)
--- NOTE | 2017-01-03 15:19 | Internal Med Progress Note ---
Date of Encounter: 01/03/17 Time of Encounter: 15:17 - Assessment and plan (1) Community acquired pneumonia Current Visit: Yes Status: Acute Assessment and plan: being followed with pulmonary (2) Influenza Current Visit: Yes Status: Acute Assessment and plan: acute (3) Acute on chronic kidney failure Current Visit: Yes Status: Acute Assessment and plan: resolved (4) Respiratory failure Current Visit: Yes Status: Acute Assessment and plan: acute on chronic Qualifiers: Chronicity: acute Respiratory failure complication: hypoxia Qualified Code(s): J96.01 - Acute respiratory failure with hypoxia (5) Abdominal pain Current Visit: Yes Status: Acute Assessment and plan: clinically better resolving gastro enteritis Qualifiers: Abdominal location: lower abdomen, unspecified Qualified Code(s): R10.30 - Lower abdominal pain, unspecified - Subjective Interval history: Patient with history of COPD, asbestosis, Ckd, CAD, patient was admitted with hypoxemia and fever and increased shortness of breath chest x-ray consistent with pneumonia . he also diagnosed with respiratory failure patient is in atrial fibrillation rate at presented is not well controlled . today says he feels somewhat better still wheezing still short of breath with minimal exertion heart rate is low 100 no chest pain - Constitutional Vitals: Temp Pulse Resp BP Pulse Ox 97.9 F 96 14 117/86 94 L 01/03/17 11:25 01/03/17 11:25 01/03/17 11:25 01/03/17 11:25 01/03/17 11:25 General appearance: Present: cooperative, A&O X 3, pleasant, answers questions appropriately - Eye Eye exam: Present: PERRL, conjuntiva pink, sclera anicteric Pupils: Present: PERRL - Neck Neck exam general surgery: Present: supple, trachea midline. Absent: lymphadenopathy - Respiratory Respiratory exam: Present: decreased breath sounds, rhonchi, wheezes - Cardiovascular Cardiovascular exam: Present: irregular rhythm - GI/Abdominal GI/Abdominal exam: Present: normal bowel sounds, soft, no peritoneal signs. Absent: distended, tenderness - Extremities Exam Extremities exam: Present: warm, radial pulses palpable and symetrical. Absent : calf tenderness, cyanotic, pedal edema Internal Medicine: Result - Labs CBC & Chem 7: 01/03/17 05:43 01/03/17 05:43 Labs: Short CBC 01/03/17 Range/Units 05:43 WBC 10.3 (4.3-11.1) K/mcL Hgb 10.5 L (12.9-16.9) g/dL Hct 31.0 L (37.5-50.1) % Plt Count 273 (140-400) K/mcL Neutrophils # 9.2 H (1.6-8.9) K/mcL BMP 01/03/17 05:43 Sodium 140 Potassium 4.0 Chloride 104 Carbon Dioxide 29 BUN 23 Creatinine 1.04 Glucose 87 Calcium 8.7 - ABG Interpretation ABG results: ABG ABG pH 7.36 pH Units (7.32-7.45) 12/28/16 06:26 ABG pCO2 34 mmHg (35-45) L 12/28/16 06:26 ABG pO2 80 mmHg (85-104) L 12/28/16 06:26 ABG O2 Saturation 95 % (95-98) 12/28/16 06:26 PT/INR, D-dimer PT 25.0 Seconds (9.4-12.1) H 01/03/17 05:43 - VTE Documentation of Mechanical Device: Intermittent pneumatic compression device Consult Discharge Plan - Plan Referrals: [facility] [Primary Care Provider] - ([facility]...)
[2017-01-03] MEDS ORDERED: *HR* Warfarin 3 MG TABLET PO ONE (18:00)
[2017-01-04] MEDS: *HR* HYDROmorphone (PF) 1 MG/ML SYRINGE IVP PRN ×4 (04:18→21:34)
[2017-01-04 07:00] LABS: Hematocrit 34.8 % (37.5-50.1); Hemoglobin 11.4 g/dL (12.9-16.9); Mean Corpuscular HGB Conc 32.8 g/dL (31.6-35.5); Mean Corpuscular Hemoglobin 28.8 pg (28.0-33.3); Mean Corpuscular Volume 87.9 fL (83.0-100.0); Mean Platelet Volume 9.9 fL (9.4-12.4); Platelet Count 292 K/mcL (140-400); Red Blood Count 3.96 M/mcL (4.19-5.50); Red Cell Distribution Width 15.3 % (11.5-14.5)
[2017-01-04 07:01] LABS: INR 1.9; Prothrombin Time 21.1 Seconds (9.4-12.1)
[2017-01-04 07:12] LABS: BUN/Creatinine Ratio 20 (6-26); Blood Urea Nitrogen 21 mg/dL (8-26); Carbon Dioxide 32 mEq/L (19-29); Chloride 101 mEq/L (98-109); Glucose 92 mg/dL (70-99); Osmolality,Calculated 289 (280-300); Sodium 138 mEq/L (136-145); eGFR For African Americans > 60 (> 60); eGFR For Non-African Americans > 60 (> 60)
[2017-01-04] MEDS: Budesonide/Formoterol 160/4.5 MDI IH SCH ×2 (07:53→20:17)
[2017-01-04] MEDS: Ipratropium/Albuterol Neb 3 ML IH SCH ×5 (07:53→22:05)
[2017-01-04] MEDS: predniSONE 10 MG TABLET PO SCH (09:11)
[2017-01-04] MEDS: Pantoprazole 40 MG VIAL IVP SCH (09:12)
--- NOTE | 2017-01-04 11:30 | Internal Med Progress Note ---
Date of Encounter: 01/04/17 Time of Encounter: 11:28 - Assessment and plan (1) Community acquired pneumonia Current Visit: Yes Status: Acute Assessment and plan: clinically much better on po antibiotics (2) Influenza Current Visit: Yes Status: Acute Assessment and plan: no complication (3) Acute on chronic kidney failure Current Visit: Yes Status: Acute Assessment and plan: resolved (4) Respiratory failure Current Visit: Yes Status: Acute Assessment and plan: clinically much better Qualifiers: Chronicity: acute Respiratory failure complication: hypoxia Qualified Code(s): J96.01 - Acute respiratory failure with hypoxia (5) Abdominal pain Current Visit: Yes Status: Acute Assessment and plan: resolved Qualifiers: Abdominal location: lower abdomen, unspecified Qualified Code(s): R10.30 - Lower abdominal pain, unspecified - Subjective Interval history: Patient with history of COPD, asbestosis, Ckd, CAD, patient was admitted with hypoxemia and fever and increased shortness of breath chest x-ray consistent with pneumonia . he also diagnosed with respiratory failure patient is in atrial fibrillation rate at presented is not well controlled . today says he feels somewhat better still wheezing still short of breath with minimal exertion heart rate is low 100 no chest pain today feels much better stable for discharge awaiting placement bed not available until friday? - Constitutional Vitals: Temp Pulse Resp BP Pulse Ox 99.2 F 98 17 125/76 90 L 01/04/17 07:23 01/04/17 07:23 01/04/17 07:23 01/04/17 07:23 01/04/17 07:23 General appearance: Present: cooperative, A&O X 3, pleasant, answers questions appropriately - Eye Eye exam: Present: PERRL, conjuntiva pink, sclera anicteric Pupils: Present: PERRL - Neck Neck exam general surgery: Present: supple, trachea midline. Absent: lymphadenopathy - Respiratory Respiratory exam: Present: rhonchi (better) - GI/Abdominal GI/Abdominal exam: Present: normal bowel sounds, soft, no peritoneal signs. Absent: distended, tenderness Internal Medicine: Result - Labs CBC & Chem 7: 01/04/17 06:37 01/04/17 06:37 Labs: Short CBC 01/04/17 Range/Units 06:37 WBC 11.0 (4.3-11.1) K/mcL Hgb 11.4 L (12.9-16.9) g/dL Hct 34.8 L (37.5-50.1) % Plt Count 292 (140-400) K/mcL BMP 01/04/17 06:37 Sodium 138 Potassium 4.0 Chloride 101 Carbon Dioxide 32 H BUN 21 Creatinine 1.04 Glucose 92 Calcium 9.0 - ABG Interpretation ABG results: ABG ABG pH 7.36 pH Units (7.32-7.45) 12/28/16 06:26 ABG pCO2 34 mmHg (35-45) L 12/28/16 06:26 ABG pO2 80 mmHg (85-104) L 12/28/16 06:26 ABG O2 Saturation 95 % (95-98) 12/28/16 06:26 PT/INR, D-dimer PT 21.1 Seconds (9.4-12.1) H 01/04/17 06:37 - VTE Documentation of Mechanical Device: Intermittent pneumatic compression device Consult Discharge Plan - Plan Referrals: [facility] [Primary Care Provider] - ([facility] your [facility]...)
[2017-01-04] MEDS ORDERED: *HR* Warfarin 3 MG TABLET PO ONE (18:00)
[2017-01-04] MEDS: levoFLOXacin 750 MG TABLET PO SCH (21:35)
[2017-01-05] MEDS: Ipratropium/Albuterol Neb 3 ML IH SCH ×3 (04:14→11:16)
[2017-01-05] MEDS: *HR* HYDROmorphone (PF) 1 MG/ML SYRINGE IVP PRN ×2 (06:38→11:48)
[2017-01-05 07:31] VITALS: BP 131/77
[2017-01-05] MEDS: Budesonide/Formoterol 160/4.5 MDI IH SCH (07:50)
[2017-01-05 08:06] LABS: INR 2.2; Prothrombin Time 24.6 Seconds (9.4-12.1)
--- NOTE | 2017-01-05 09:07 | Discharge Summary ---
Date of Encounter: 01/05/17 Time of Encounter: 09:05 - Discharge Diagnosis (1) Acute respiratory failure with hypoxia Priority: Primary Status: Acute Comments: Related to influenza and pneumonia. (2) Influenza Priority: Primary Status: Acute Comments: Complete treatment course. (3) Pneumonia due to Streptococcus pneumoniae Priority: Primary Status: Acute Qualifiers: Laterality: bilateral Lung location: lower lobe of lung Qualified Code(s) : J13 - Pneumonia due to Streptococcus pneumoniae (4) Abdominal pain Priority: Secondary Status: Acute Comments: Due to coughing. Qualifiers: Abdominal location: lower abdomen, unspecified Qualified Code(s): R10.30 - Lower abdominal pain, unspecified (5) Atrial fibrillation Priority: Secondary Status: Chronic Qualifiers: Atrial fibrillation type: chronic Qualified Code(s): I48.2 - Chronic atrial fibrillation (6) COPD with acute exacerbation Priority: Secondary Status: Acute (7) Elevated troponin Priority: Secondary Status: Acute (8) Acute renal failure superimposed on stage 3 chronic kidney disease Priority: Secondary Status: Chronic (9) History of tobacco use Priority: Secondary Status: Chronic - Discharge Medications Prescriptions: HYDROcodone/Acet 5/325 mg [[place] 5-325 mg] 1 tab PO Q4H PRN #5 tab PRN Reason: Pain Warfarin [Coumadin] 3 mg PO 1800 #5 tablet Home Medications: Albuterol Sulfate [Albuterol Inhaler] 2 puff IH Q4H PRN 12/27/16 [History] Atorvastatin [Lipitor] 10 mg PO HS 12/27/16 [History] Budesonide/Formoterol 160/4.5 [Symbicort 160/4.5] 2 puff IH BIDR 12/27/16 [ History] Magnesium Hydroxide [Milk of Magnesia] 2,400 mg PO DAILY PRN 12/27/16 [History] Tiotropium [Spiriva] 18 mcg IH 0700 12/27/16 [History] Trazodone HCl 100 mg PO HS 12/27/16 [History] Budesonide/Formoterol 160/4.5 [Symbicort 160/4.5] 2 puff IH BIDR inhaler [Rx] Docusate [Colace] 100 mg PO BID capsule 01/05/17 [Rx] HYDROcodone/Acet 5/325 mg [[place] 5-325 mg] 1 tab PO Q4H PRN #5 tab 01/05/17 [Rx] Ipratropium/Albuterol Neb [Duoneb] 3 ml IH Q4HWA inhsol 01/05/17 [Rx] Levofloxacin 750 mg PO DAILY #5 tablet 01/05/17 [Rx] Metoprolol [Lopressor] 25 mg PO BID tablet 01/05/17 [Rx] Warfarin [Coumadin] 3 mg PO 1800 #5 tablet 01/05/17 [Rx] Allergies/Adverse Reactions: Allergies clindamycin Allergy (Verified 12/27/16 20:09) See Comments Erythromycin Base Allergy (Verified 12/27/16 20:09) See Comments Penicillins Allergy (Verified 12/27/16 20:09) See Comments Sulfa (Sulfonamide Antibiotics) Allergy (Verified 12/27/16 20:09) See Comments Date of admission: 12/28/16 05:03 [facility]: [facility] Consults: 12/31/16 08:45 Consult to Physical Therapy [CONS] Routine Comment: Evaluate, develop and implement POC OT [Consult to Occupational Therapy] [CONS] Routine Comment: Evaluate, develop and implement POC 01/02/17 08:42 Consult to [employer] [CONS] Routine Reason for SW Consult: per therapy qualified for inpt swing/rehab Discharging clinician: Db Connre Anticipated date of discharge: 01/05/17 - Patient Status Disposition: Transfer SNF Condition: Good Functional capacity at discharge: independent ambulation Overall status at discharge: patient is progressing back to baseline - Discharge Instructions [facility] Up With: [facility] [Primary Care Provider] - (Please follow up your OR Primary Care...) - Diet and Activity Activity: as per physical therapy, increase activity as tolerated Diet: low salt diet Hospital course: Mr. Fleming is a 71 year old male with hx of COPD and asbestosis transferred from the OR due to worsening hypoxia despite treatment. He also noted severe abdominal pain and decreased urination. He tested positive for influenza ( despite vaccine) and was admitted to ICU here. Mr. Fleming was admitted to floor and subsequently transferred to ICU. He was initially bipap dependent. His medications were adjusted on admission and he began to have slow improvement and was able to be off the bipap intermittently. He was transitioned to high flow nasal cannula and was able to be weaned down over time. He had palpitations and was noted to be in rapid a fib. Metoprolol was increased with improvement. His streptococcus urinary antigen was positive so he was continued on abx as well. He was transferred from ICU and continued to slowly improve with treatment. Steroids were discontinued and he completed course of Tamiflu. He was evaluated by PT/OT and recommended for SNF. Arrangements have been made for discharge to [facility]. On 01/05 he is feeling OK. He is still coughing but not as bad as it has been. His vitals are stable and he is afebrile. At this time he is ready for d/c to SNF. - Time Spent with Patient Total time spent providing and/or coordinating discharge services: 42min - Constitutional Vitals: Temp Pulse Resp BP Pulse Ox 98.1 F 80 20 131/77 95 01/05/17 07:30 01/05/17 07:30 01/05/17 07:30 01/05/17 07:30 01/05/17 07:30 General appearance: Present: cooperative, A&O X 3, pleasant, answers questions appropriately - Head Head exam: Present: normocephalic - Eye Eye exam: Present: EOMI, conjuntiva pink - ENT ENT exam: Present: mucous membranes dry - Respiratory Respiratory exam: Present: decreased breath sounds, rhonchi. Absent: wheezes - Cardiovascular Cardiovascular exam: Present: irregular rhythm. Absent: tachycardia - GI/Abdominal GI/Abdominal exam: Present: soft, tenderness, no peritoneal signs - Extremities Exam Extremities exam: Present: warm. Absent: joint swelling - Neurological Exam Neurological exam: Present: alert, oriented X3, no focal deficits - Psychiatric Psychiatric exam: Present: normal affect, normal mood - Skin Skin exam: Present: dry, warm. Absent: rash - VTE Documentation of Mechanical Device: Graduated compression elastic hosiery
--- NOTE | 2017-01-05 09:46 | Physician Discharge Referral ---
ExtendedCare Referral Info Transfer To: [facility] Provider in Charge: Db Conner DO Provider in Charge after Transfer: PCP Institutional Level of Care: Skilled - Diagnosis (1) Acute respiratory failure with hypoxia Priority: Primary Status: Acute (2) Influenza Priority: Primary Status: Acute (3) Pneumonia due to Streptococcus pneumoniae Priority: Primary Status: Acute (4) Abdominal pain Priority: Secondary Status: Acute (5) Atrial fibrillation Priority: Secondary Status: Chronic (6) COPD with acute exacerbation Priority: Secondary Status: Acute (7) Elevated troponin Priority: Secondary Status: Acute (8) Acute renal failure superimposed on stage 3 chronic kidney disease Priority: Secondary Status: Chronic (9) History of tobacco use Priority: Secondary Status: Chronic Expected Duration of Placement: Less than 30 days Prognosis: Good Aware of Diagnosis: Patient, Family Aware of Prognosis: Patient, Family - Transfer Medications Prescriptions: HYDROcodone/Acet 5/325 mg [[place] 5-325 mg] 1 tab PO Q4H PRN #5 tab PRN Reason: Pain Warfarin [Coumadin] 3 mg PO 1800 #5 tablet Home Medications: Albuterol Sulfate [Albuterol Inhaler] 2 puff IH Q4H PRN 12/27/16 [History] Atorvastatin [Lipitor] 10 mg PO HS 12/27/16 [History] Budesonide/Formoterol 160/4.5 [Symbicort 160/4.5] 2 puff IH BIDR 12/27/16 [ History] Magnesium Hydroxide [Milk of Magnesia] 2,400 mg PO DAILY PRN 12/27/16 [History] Tiotropium [Spiriva] 18 mcg IH 0700 12/27/16 [History] Trazodone HCl 100 mg PO HS 12/27/16 [History] Budesonide/Formoterol 160/4.5 [Symbicort 160/4.5] 2 puff IH BIDR inhaler [Rx] Docusate [Colace] 100 mg PO BID capsule 01/05/17 [Rx] HYDROcodone/Acet 5/325 mg [[place] 5-325 mg] 1 tab PO Q4H PRN #5 tab 01/05/17 [Rx] Ipratropium/Albuterol Neb [Duoneb] 3 ml IH Q4HWA inhsol 01/05/17 [Rx] Levofloxacin 750 mg PO DAILY #5 tablet 01/05/17 [Rx] Metoprolol [Lopressor] 25 mg PO BID tablet 01/05/17 [Rx] Warfarin [Coumadin] 3 mg PO 1800 #5 tablet 01/05/17 [Rx] Allergies/Adverse Reactions: Allergies clindamycin Allergy (Verified 12/27/16 20:09) See Comments Erythromycin Base Allergy (Verified 12/27/16 20:09) See Comments Penicillins Allergy (Verified 12/27/16 20:09) See Comments Sulfa (Sulfonamide Antibiotics) Allergy (Verified 12/27/16 20:09) See Comments - Respiratory Orders Oxygen / L per min (Keep saturation greater than 88%) Smoking Cessation: Smoking cessation has been advised. For more information, call the [place] Tobacco Quit Line at 9-440-NHIB-NOW. - Lab Orders Lab Orders: 2 Step Mantoux Test per State regulation - Ancillary Orders May use pressure relief devices daily prn, May go on CEM w/family/respon libertarian w /meds at nurse discretion PRN, May consult with Dentist, Industrial Engineer, Metal Machine Setter PRN - Advance Directives Code Status: Full Code - History and Physical History/Physical reviewed & approved w/add comments: Pt with improved respiratory status. - Mobility Orders Ambulate - Rehabiliation Orders Rehab Potential: Good Rehab Orders: Evaluation for Physical Therapy, Evaluation for Occupational Therapy - Treatments Skin tear care topically daily PRN per policy, May check for fecal impaction rectally daily PRN, Fleet enema rectally every other day PRN cleansing purposes - Diet Orders Cardiac CERTIFICATION: I certify that the transfer of the above named patient to an Extended Care Facility is necessary for the continuing treatment of the diagnosis listed. The above information is true and accurate reflection of patient's current condition. Confidential - Redisclosure prohibited without a patient's written consent.
[2017-01-05] MEDS: Pantoprazole 40 MG VIAL IVP SCH (10:00)
[2017-01-05] MEDS ORDERED: *HR* Warfarin 3 MG TABLET PO ONE (18:00)
== END 2017-01-05 12:18 | DRG 871 ==
LOC: 2NENU 20:04 → EMEROO 20:04 → 2NENU 23:28 → ICNU 12-28 01:30 → SUATTDRO 12-28 05:03 → 2ANU 12-31 20:06
PROVIDERS: ADMIT Internal Medicine; ATTEND Internal Medicine

== ENCOUNTER 2022-04-04 16:29 | Observation (INO) ==
[2022-04-04] MEDS ORDERED: Iopamidol - 370 500 ML MLS IVP ONE ×2 (16:42→16:45)
[2022-04-04 16:58] LABS: Bacteria,Urine Few per hpf (None-Few); Bilirubin,Urine Negative (Negative); Blood,Urine Negative (Negative); Clarity,Urine Clear (Clear); Color,Urine Light-Yellow (Yellow); Glucose,Urine (UA) Normal (Normal); Hyaline Casts,Urine Few per lpf (None Seen); Ketones,Urine Negative (Negative); Leukocyte Esterase,Urine Trace (Negative); Mucus,Urine Few per lpf (None-Few); Nitrite,Urine Negative (Negative); Protein,Urine Trace mg/dL (Neg-Trace); RBC,Urine 0-3 per hpf (0-3); Specific Gravity,Urine 1.009 (1.010-1.025); Squamous Epithelial Cell,Urine Few per hpf (None-Few); Urobilinogen,Urine Normal (Normal)
[2022-04-04 17:21] LABS: Amphetamine Screen,Urine Negative ng/mL (Cutoff=1000); Barbiturate Screen,Urine Negative ng/mL (Cutoff=200); Benzodiazepines Screen,Urine Negative ng/mL (Cutoff=200); Cannabinoid Screen,Urine Negative ng/mL (Cutoff = 50); Cocaine Screen,Urine Negative ng/mL (Cutoff= 300); Opiate Screen,Urine Positive ng/mL (Cutoff=300); Phencyclidine Screen,Urine Negative ng/mL (Cutoff=25)
[2022-04-04 17:21] LABS: BUN/Creatinine Ratio 19 (6-26); Blood Urea Nitrogen 32 mg/dL (8-23); Calcium 8.5 mg/dL (8.6-10.3); Carbon Dioxide 19 mEq/L (23-29); Chloride 107 mEq/L (98-107); Glucose 124 mg/dL (70-105); Osmolality,Calculated 288 (280-300); Potassium 4.3 mEq/L (3.5-5.1); Sodium 135 mEq/L (136-145); Troponin I < 0.03 ng/mL (< 0.04); eGFR For African Americans 47 (> 60); eGFR For Non-African Americans 39 (> 60)
[2022-04-04 17:23] LABS: Hematocrit 35.5 % (37.5-50.1); Hemoglobin 11.5 g/dL (12.9-16.9); Mean Corpuscular HGB Conc 32.4 g/dL (31.6-35.5); Mean Corpuscular Hemoglobin 29.7 pg (28.0-33.3); Mean Corpuscular Volume 91.7 fL (83.0-100.0); Mean Platelet Volume 9.7 fL (9.4-12.4); Platelet Count 202 K/mcL (140-400); Red Blood Count 3.87 M/mcL (4.19-5.50); Red Cell Distribution Width 14.1 % (11.5-14.5)
[2022-04-04 17:28] LABS: VBG HCO3 22 mEq/L (21-27); VBG PCO2 40 mmHg (41-51); VBG PH 7.35 pH Units (7.32-7.42); VBG PO2 56 mmHg (25-50)
[2022-04-04] MEDS ORDERED: *HR* Etomidate 20 MG/10 ML AMPUL IVP ONE (19:06)
[2022-04-04] MEDS ORDERED: Acetaminophen 325 MG TABLET PO PRN (21:46)
[2022-04-04] MEDS ORDERED: Ondansetron 4 MG/2 ML VIAL IVP PRN (21:46)
[2022-04-04] MEDS ORDERED: Naloxone 0.4 MG/ML INJ IVP PRN (21:46)
[2022-04-05] MEDS: Melatonin 3 MG TABLET PO PRN (01:49)
[2022-04-05] MEDS ORDERED: Perflutren Lipid Microsphere 1.3 ML in 0.9 % Sodium Chloride 8.7 ML IVP PRN (03:52)
[2022-04-05] MEDS ORDERED: Albuterol 2.5 MG/3 ML NEBULIZER IH PRN (03:56)
[2022-04-05] MEDS: Magic Mouthwash 10 ML UD Cup PO SCH ×4 (06:12→17:26)
[2022-04-05] MEDS ORDERED: 0.9 % Sodium Chloride 1,000 ML IVC ONE (08:43)
[2022-04-05] MEDS: Ipratropium/Albuterol Neb 3 ML IH SCH ×5 (10:20→23:23)
[2022-04-05 12:08] LABS: Bilirubin,Urine Negative (Negative); Blood,Urine Small (Negative); Clarity,Urine Clear (Clear); Color,Urine Colorless (Yellow); Glucose,Urine (UA) Normal (Normal); Ketones,Urine Negative (Negative); Leukocyte Esterase,Urine Trace (Negative); Nitrite,Urine Negative (Negative); Protein,Urine Trace mg/dL (Neg-Trace); Specific Gravity,Urine 1.011 (1.010-1.025); Squamous Epithelial Cell,Urine Few per hpf (None-Few); Transitional Epi Cells,Urine Few per hpf (None-Few); Urobilinogen,Urine Normal (Normal)
[2022-04-05 12:14] LABS: Basophils # 0.1 K/mcL (0.0-0.2); Basophils % 0.7 %; Eosinophils # 0.2 K/mcL (0.0-0.6); Eosinophils % 3.1 %; Hematocrit 40.8 % (37.5-50.1); Immature Granulocytes % 0.3 % (0-4); Lymphocytes # 0.9 K/mcL (0.6-4.6); Lymphocytes % 13.3 %; Mean Corpuscular HGB Conc 32.1 g/dL (31.6-35.5); Mean Corpuscular Hemoglobin 29.4 pg (28.0-33.3); Mean Corpuscular Volume 91.5 fL (83.0-100.0); Mean Platelet Volume 9.9 fL (9.4-12.4); Monocytes # 0.7 K/mcL (0.0-1.3); Monocytes % 10.2 %; Neutrophils # 5.1 K/mcL (1.6-8.9); Platelet Count 232 K/mcL (140-400); Red Blood Count 4.46 M/mcL (4.19-5.50); Red Cell Distribution Width 14.1 % (11.5-14.5); Segmented Neutrophils % 72.4 %; White Blood Count 7.1 K/mcL (4.3-11.1)
[2022-04-05 12:28] LABS: Sodium, Urine 70.9 mEq/L
[2022-04-05 12:33] LABS: Hemoglobin 13.1 g/dL (12.9-16.9)
[2022-04-05 12:58] LABS: Alanine Aminotransferase 13 Units/L (7-52); Albumin 4.5 g/dL (3.5-5.7); Albumin/Globulin Ratio 1.6 (1.1-2.2); Alkaline Phosphatase 58 Units/L (34-104); Aspartate Amino Transferase 24 Units/L (13-39); BUN/Creatinine Ratio 13 (6-26); Bilirubin,Total 0.8 mg/dL (0.3-1.0); Blood Urea Nitrogen 18 mg/dL (8-23); Calcium 9.6 mg/dL (8.6-10.3); Carbon Dioxide 23 mEq/L (23-29); Chloride 107 mEq/L (98-107); Chol/HDL Ratio 1.8 (0-4.9); Cholesterol 162 mg/dL (< 200); Globulin 2.8 g/dL (2.4-3.5); Glucose 102 mg/dL (70-105); HDL Cholesterol 90 mg/dL (40-59); LDL Cholesterol,Calculated 50 mg/dL (< 100); Magnesium 1.8 mg/dL (1.6-2.6); Osmolality,Calculated 292 (280-300); Phosphorous 2.8 mg/dL (2.7-4.5); Potassium 4.3 mEq/L (3.5-5.1); Sodium 140 mEq/L (136-145); Total Protein 7.3 g/dL (6.4-8.9); Triglycerides 108 mg/dL (< 150); Troponin I < 0.03 ng/mL (< 0.04); eGFR For African Americans 58 (> 60); eGFR For Non-African Americans 48 (> 60)
[2022-04-05 13:00] LABS: INR 1.2
[2022-04-05 13:43] LABS: Estimated Average Glucose 120 mg/dl; Hemoglobin A1C 5.8 %
[2022-04-05] MEDS ORDERED: *HR* OxyCODONE/APAP 5/325 TABLET PO PRN (15:06)
[2022-04-05] MEDS ORDERED: Albuterol Neb 1.25 MG/3 ML VIAL IH PRN (15:23)
[2022-04-05] MEDS: Metoprolol XL (24 HR) Succ 25 MG TAB.ER.24H PO SCH (15:32)
[2022-04-05] MEDS ORDERED: SODIUM CHLORIDE/NAHCO3/KCL/PEG 4,000 ML SOLN.RECON PO ONE (17:00)
[2022-04-05] MEDS: Acetaminophen IV 1,000 MG/100 ML BAG IVPB PRN (21:15)
[2022-04-06] MEDS ORDERED: Morphine Sulfate 2 MG/ML SYRINGE IVP ONE (00:52)
[2022-04-06 01:27] LABS: BUN/Creatinine Ratio 10 (6-26); Blood Urea Nitrogen 13 mg/dL (8-23); Calcium 8.8 mg/dL (8.6-10.3); Carbon Dioxide 20 mEq/L (23-29); Chloride 105 mEq/L (98-107); Glucose 104 mg/dL (70-105); Magnesium 1.6 mg/dL (1.6-2.6); Osmolality,Calculated 282 (280-300); Phosphorous 2.3 mg/dL (2.7-4.5); Potassium 4.9 mEq/L (3.5-5.1); Sodium 136 mEq/L (136-145); eGFR For African Americans > 60 (> 60); eGFR For Non-African Americans 56 (> 60)
[2022-04-06] MEDS: Acetaminophen IV 1,000 MG/100 ML BAG IVPB PRN (01:32)
[2022-04-06] MEDS: Ipratropium/Albuterol Neb 3 ML IH SCH ×4 (03:47→15:37)
[2022-04-06] MEDS: Metoprolol XL (24 HR) Succ 25 MG TAB.ER.24H PO SCH (07:34)
[2022-04-06] MEDS ORDERED: Lidocaine -MPF 2% 2 ML VIAL ONE (07:56)
[2022-04-06] MEDS: Magic Mouthwash 10 ML UD Cup PO SCH ×3 (10:26→17:30)
[2022-04-06] MEDS: Acetaminophen 325 MG TABLET PO PRN (12:54)
[2022-04-06] MEDS ORDERED: Ipratropium/Albuterol Neb 3 ML IH PRN (17:33)
[2022-04-06] MEDS: Tiotropium 10 INH DOSE IH SCH (17:42)
[2022-04-06] MEDS: lisinopriL 10 MG TABLET PO SCH (19:08)
[2022-04-06] MEDS: Apixaban 5 MG TABLET PO SCH (20:31)
[2022-04-06] MEDS: Melatonin 3 MG TABLET PO PRN (20:31)
[2022-04-06] MEDS ORDERED: Apixaban 5 MG TABLET PO SCH (21:00)
[2022-04-07] MEDS: Acetaminophen 325 MG TABLET PO PRN (01:12)
[2022-04-07 01:54] LABS: Hematocrit 31.5 % (37.5-50.1); Mean Corpuscular Volume 90.8 fL (83.0-100.0); Mean Platelet Volume 9.7 fL (9.4-12.4); Platelet Count 218 K/mcL (140-400); Red Blood Count 3.47 M/mcL (4.19-5.50)
[2022-04-07 01:57] LABS: Hemoglobin 10.4 g/dL (12.9-16.9)
[2022-04-07 02:19] LABS: BUN/Creatinine Ratio 10 (6-26); Blood Urea Nitrogen 12 mg/dL (8-23); Carbon Dioxide 27 mEq/L (23-29); Chloride 106 mEq/L (98-107); Glucose 117 mg/dL (70-105); Osmolality,Calculated 291 (280-300); Potassium 4.3 mEq/L (3.5-5.1); Sodium 140 mEq/L (136-145); eGFR For African Americans > 60 (> 60); eGFR For Non-African Americans 55 (> 60)
[2022-04-07] MEDS: Apixaban 5 MG TABLET PO SCH ×2 (08:04→19:55)
[2022-04-07] MEDS: lisinopriL 10 MG TABLET PO SCH (08:04)
[2022-04-07] MEDS: Magic Mouthwash 10 ML UD Cup PO SCH ×3 (08:05→17:11)
[2022-04-07] MEDS: Tiotropium 10 INH DOSE IH SCH (08:21)
[2022-04-07] MEDS ORDERED: Metoprolol XL (24 HR) Succ 25 MG TAB.ER.24H PO SCH (09:00)
[2022-04-07] MEDS: *HR* HYDROcodone/Acet 5/325 mg TABLET PO PRN ×2 (12:24→19:15)
[2022-04-07] MEDS: Metoprolol XL (24 HR) Succ 25 MG TAB.ER.24H PO SCH (19:55)
[2022-04-07] MEDS: Melatonin 3 MG TABLET PO PRN (21:23)
[2022-04-08] MEDS: *HR* HYDROcodone/Acet 5/325 mg TABLET PO PRN ×3 (01:04→13:50)
[2022-04-08 06:09] LABS: Calcium 9.2 mg/dL (8.6-10.3); Magnesium 1.7 mg/dL (1.6-2.6); Phosphorous 3.7 mg/dL (2.7-4.5)
[2022-04-08] MEDS: Metoprolol XL (24 HR) Succ 25 MG TAB.ER.24H PO SCH (07:48)
[2022-04-08] MEDS: Magic Mouthwash 10 ML UD Cup PO SCH ×3 (07:49→16:07)
[2022-04-08] MEDS: Apixaban 5 MG TABLET PO SCH (07:49)
[2022-04-08] MEDS: Tiotropium 10 INH DOSE IH SCH (08:11)
[2022-04-08] MEDS ORDERED: lisinopriL 10 MG TABLET PO SCH (09:00)
[2022-04-08] MEDS ORDERED: polyethylene glycoL 3350 17 GM POWD.PACK PO SCH (10:30)
[2022-04-08 18:41] VITALS: PULSE 62; TEMP 98.5
[2022-04-08 18:42] VITALS: BP 113/75; O2SAT 98
== END 2022-04-08 20:15 | disposition home health service (06) ==
LOC: 2ANU 16:29 → EMEROOARM 16:29 → SUATTDRO 19:05 → 2NNU 19:50
PROVIDERS: ADMIT Family Medicine; ATTEND Family Medicine
PROC: ENDOCBX (2022-04-06 08:00)